=== PATIENT | female | born 1980 ===

== ENCOUNTER 2016-08-17 08:09 | Day surgery (SDC) | payer MEDICAID ==
[2016-02-29 17:03] VITALS: BMI 44.6
[2016-08-17] MEDS ORDERED: Lactated Ringer's 500 ML IV ONE (08:38)
[2016-08-17] MEDS ORDERED: Propofol 10 mg/ml Inj (20 ML) ONE (09:51)
[2016-08-17 10:56] VITALS: BP 127/93; PULSE 80; RESP 16; TEMP 98.7; O2SAT 100
== END 2016-08-17 11:20 | disposition home or self-care (01) ==
LOC: H.ENDO 08:09
PROVIDERS: ATTEND Internal Medicine Gastroenterology
DX: K21.9 Gastro-esophageal reflux disease without esophagitis (principal); I10 Essential (primary) hypertension; D64.9 Anemia, unspecified; K44.9 Diaphragmatic hernia without obstruction or gangrene; K31.9 Disease of stomach and duodenum, unspecified; Z98.84 Bariatric surgery status; K20.9 Esophagitis, unspecified

== ENCOUNTER 2016-11-12 06:09 | Day surgery (SDC) | payer MEDICAID ==
[2016-11-12 07:03] VITALS: BMI 27.1
[2016-11-12 07:34] LABS: HEMATOCRIT 39.7 % (34.0-47.0); MEAN CELL VOLUME 85.4 fl (81.0-99.0); MEAN CORPUSCULAR HEMOGLOBIN 27.9 pg (27.0-31.0); MEAN CORPUSCULAR HGB CONC 32.7 g/dL (33.0-37.0); RED CELL DISTRIBUTION WIDTH 15.7 % (11.5-14.5); WHITE BLOOD COUNT 4.7 K/uL (4.8-10.8)
[2016-11-12 07:49] LABS: BLOOD UREA NITROGEN 24 mg/dl (7-17); CALCIUM 9.5 mg/dL (8.4-10.2); CARBON DIOXIDE 27 mmol/L (22-30); CHLORIDE 104 mmol/L (98-107); GFR AFRICAN-AMERICAN > 60; GLUCOSE,RANDOM 78 mg/dL (65-105); POTASSIUM 4.2 MMOL/L (3.6-5.0); SODIUM 141 mmol/l (132-148)
[2016-11-12] MEDS ORDERED: Midazolam 2 MG/2 ML VIAL ONE (08:43)
[2016-11-12] MEDS ORDERED: Propofol 10 mg/ml Inj (20 ML) ONE (08:43)
[2016-11-12] MEDS ORDERED: Rocuronium 10 mg/ml (5 ml) ONE ×2 (08:44→10:55)
--- NOTE | 2016-11-12 08:49 | CP.SDSHP ---
Same Day Surgery H & P - History Proposed Procedure: laparoscopy ovarian cystectomy Pre-Op Diagnosis: pelvic pain; ovarian cyst - Previous Medical/Surgical History Misc: Other Comments: ovarian cyst by sono - Allergies Allergies: Allergies aspirin Allergy (Verified 12/27/15 23:25) RASH Penicillins Allergy (Verified 01/24/16 15:16) URTICARIA seasonal Allergy (Uncoded 11/12/16 07:18) SWELLING EYES TEARY - Physical Exam General Appearance: NAD, w/o x3 Vital Signs: Vital Signs 11/12/16 11/12/16 07:04 07:10 Temperature 98.2 F Pulse Rate 94 H 94 H Respiratory 18 Rate Blood Pressure 106/76 O2 Sat by Pulse 100 Oximetry Mental Status: Alert & Oriented x3 Neuro: WNL Heart: WNL Lungs: WNL GI: WNL - {Optional Preform as Required} Breast: WNL Abdomen: WNL Rectal: WNL SPRAY GUNNER: Other - Impression Impression: ovarian cyst - Date & Time Date: 11/12/16 Time: 08:55 Short Stay Discharge - Short Stay Discharge Admitting Diagnosis/Reason for Visit: N83.209 Disposition: HOME/ ROUTINE Referrals: Stephen Chambers MD [Primary Care Provider] -
[2016-11-12] MEDS ORDERED: Lidocaine 1% Inj (20ml) ONE (08:56)
[2016-11-12] MEDS ORDERED: Bupivacaine 0.5% Inj(30mL) ONE (08:56)
[2016-11-12] MEDS ORDERED: Lactated Ringer's 1,000 ML IV ONE (09:28)
[2016-11-12] MEDS ORDERED: Dexamethasone 4 mg/1 ml ONE (09:58)
[2016-11-12] MEDS ORDERED: Desflurane Inhalation Anesthetic Liq (240 ml) ONE (10:39)
[2016-11-12] MEDS ORDERED: Neostigmine Methylsulfate 2 MG/2 ML ML IV ONE (11:18)
[2016-11-12] MEDS ORDERED: Lactated Ringer's 1,000 ML IV SCH (11:47)
[2016-11-12] MEDS ORDERED: Oxycodone/Acetaminophen 5/325 mg Tab PO PRN (11:57)
[2016-11-12] MEDS: HYDROmorphone 0.5 mg/0.5 ml ISec IVP PRN ×3 (12:15→12:40)
[2016-11-12 13:26] VITALS: RESP 18
--- NOTE | 2016-11-12 15:35 | CP.SDSHP ---
Same Day Surgery H & P - Allergies Allergies: Allergies aspirin Allergy (Verified 12/27/15 23:25) RASH Penicillins Allergy (Verified 01/24/16 15:16) URTICARIA seasonal Allergy (Uncoded 11/12/16 07:18) SWELLING EYES TEARY - Physical Exam Vital Signs: Vital Signs 11/12/16 11/12/16 11/12/16 11:45 12:00 12:15 Temperature 98.0 F Pulse Rate 77 78 84 Respiratory 18 18 20 Rate Blood Pressure 127/84 131/89 126/85 O2 Sat by Pulse 100 100 99 Oximetry 11/12/16 11/12/16 11/12/16 12:30 12:45 13:00 Temperature 98.1 F 97.9 F Pulse Rate 84 82 83 Respiratory 18 20 20 Rate Blood Pressure 115/78 128/87 110/81 O2 Sat by Pulse 100 99 99 Oximetry 11/12/16 11/12/16 11/12/16 13:05 13:15 13:25 Temperature 98.1 F 97.8 F Pulse Rate 91 H 89 Respiratory 20 18 Rate Blood Pressure 117/73 120/85 O2 Sat by Pulse 99 99 96 Oximetry 11/12/16 14:10 Temperature 97.6 F Pulse Rate 82 Respiratory 18 Rate Blood Pressure 126/78 O2 Sat by Pulse 100 Oximetry Short Stay Discharge - Short Stay Discharge Admitting Diagnosis/Reason for Visit: N83.209 Referrals: Stephen Chambers MD [Primary Care Provider] - Follow-up: 2 wks in office Additional Instructions (Diet, Activity): pelvic and bed rest Rx for Percocet given (ipo q 4hrs prn for pain #30.) Progress Note/Discharge Note with Instructions: tolerated procedure well recovered well and procedure and findings explained to the pt Instructions given
[2016-11-12 16:30] VITALS: BP 109/61; PULSE 91; TEMP 97.6; O2SAT 99
--- NOTE | 2016-11-16 15:30 | OP ---
PROCEDURE DATE: 11/12/2016 PREOPERATIVE DIAGNOSES: 1. Pelvic pain. 2. Large left ovarian cyst. POSTOPERATIVE DIAGNOSES: 1. Pelvic pain. 2. Severe pelvic and abdominal adhesions. SURGEON: Dr. Hatch MANAGER SALT: Dr. Cantu, who was there for the entire duration of the case. Salesperson Corsets was needed i n positioning the patient and offering retraction and assisted in performing cystectomy and lysis of adhesions. ANESTHESIA USED: General per Dr. Ortiz. ESTIMATED BLOOD LOSS: 25 mL. DRAINS USED: None. REPLACEMENTS USED: None. FINDINGS: 1. Cervix appears long posterior, mobile, no gross lesion to visualization. 2. Laparoscopy showed severe adhesions of the omentum to the anterior abdominal wall and to the pelv ic wall. Adhesions were lysed using ligature procedure without any complication. 3. Left adnexal cyst about 10 cm, appears to be clear, aspirated over 165 mL of clear fluid and left ovarian cystectomy performed using ligature apparatus without any complications. PROCEDURE: The patient was taken to the operating room and placed on the operating table in a supine position. Following induction of general anesthesia, the patient was then replaced in a dorsal lith otomy position. Perineal and genital areas were draped and prepped in the usual sterile manner and s o was the abdomen. At this time, we then proceeded to place a Moreno catheter in the bladder. Clear fluid was then evacuated from the bladder. The patient was then examined under anesthesia with some of the above findings. Heavy weighted speculum was then placed in the posterior wall of vagina, expo sing the cervix. The anterior lip of the cervix was then grasped using a single-tooth tenaculum and retracted superiorly. At this time, the endocervical canal was then gently dilated using Hanks dilat ors in an increasing size manner in order to accommodate a HUMI cannula. A HUMI cannula was then ins erted into the endocervical canal and single-tooth tenaculum was then removed. No bleeding noted. A t this time, attention was then given to the abdomen. At the umbilicus, a Veress needle was then int roduced into the abdomen and about 5 liters of carbon dioxide were introduced into the abdomen, thus creating a pneumoperitoneum. Veress needle was then removed and a 1 cm incision was then made at the skin at the umbilicus. Through this, a 10 mm trocar was then introduced under direct visualization and upon entering the abdominal cavity, visualization of the area underneath the insertion showed no signs of trauma or bleeding. Laparoscope was then introduced through the trocar sheath and severe ad hesions of the omentum to the anterior abdominal wall and pelvic wall were noted to be present. Some of these adhesions were interfering with proposed procedure. At this time, we then proceeded to morris ce a 5 mm trocar on the left lower quadrant and a 11-12 mm trocar on the right lower quadrant. Both trocars were introduced under direct visualization without any complications. Using a ligature appar atus and a laparoscopic grasper, adhesions that were interfering with visualization of the pelvic org ans were then grasped and adhesions were lysed without any complications. No bleeding noted. At thi s time, a large ovarian cyst noted to be present on the left side, about 10 cm in size. The right ov lily appeared grossly within normal limits to inspection and the right tube also appeared grossly with in normal limits to inspection. At this time, we then proceeded using a laparoscopic needle to drain about 165 or more mL of clear fluid through the laparoscope. This fluid was sent to pathology for amelia bullard pathological evaluation. At this time, the collapsed cyst was then grasped using a grasping fo rceps and using ligature, cystectomy was then performed by electrocoagulating and cutting the cyst fr om the rest of the ovary. At this time, the cyst wall was then removed and the specimen was sent to pathology for proper pathological evaluation. Following this, we then proceeded to irrigate the pelv ic cavity using saline solution. No bleeding noted from the operative areas and all operative areas checked, hemostatically secure. Some more adhesions of the omentum to the anterior abdominal wall we re then lysed in order to prevent future entrapment of the bowel without any complications. Followin g this, we then proceeded to place an Interceed on the operative areas in order to prevent future adh esions. Pneumoperitoneum was then partially evacuated and the 5 mm trocar was then removed under dir ect visualization from the left lower quadrant. No bleeding noted. Also, the right lower quadrant t rocar was then also removed and no bleeding noted. At this time, the pneumoperitoneum was evacuated and the laparoscopic trocar was then removed under direct visualization. Fascia at the umbilicus was then grasped and approximated using 0 Vicryl suture in a simple manner. Same procedure was then per formed on the smaller right lower quadrant incision. At this time, the skin was then approximated us ing a Monocryl in a subcuticular fashion and Dermabond was then applied. Following this, we then pro ceeded to remove the HUMI cannula. No bleeding noted. The patient tolerated the procedure well. Th ere were no complications. Clear fluid noted to be present in the Moreno bag and the Moreno was then r emoved and the patient transferred to the recovery room in satisfactory condition. Ian Hatch MD cc: 71 TT: 11/16/2016 15:29:35 en
== END 2016-11-12 17:30 | disposition home or self-care (01) ==
LOC: H.OPSURG 06:09
PROVIDERS: ATTEND Specialist
DX: N83.292 Other ovarian cyst, left side (principal); K21.9 Gastro-esophageal reflux disease without esophagitis; F32.9 Major depressive disorder, single episode, unspecified; I10 Essential (primary) hypertension; F90.8 Attention-deficit hyperactivity disorder, other type; R10.2 Pelvic and perineal pain; K66.0 Peritoneal adhesions (postprocedural) (postinfection)

== ENCOUNTER 2016-11-27 01:27 | Emergency (ER) | payer MEDICAID ==
[2016-11-27 01:27] VITALS: BMI 27.1
[2016-11-27 01:53] VITALS: TEMP 98.6
--- NOTE | 2016-11-27 02:46 | ED PDOC ---
HPI: Abdomen Time Seen by Provider: 11/27/16 01:48 Chief Complaint (Nursing): Abdominal Pain Chief Complaint (Provider): Abdominal/Rectal Pain History Per: Patient Onset/Duration Of Symptoms: Days (x2 days) Current Symptoms Are (Timing): Still Present Additional Complaint(s): Lili Quinteros is a 36 year old female with previous medical history of ovarian cyst, who presents to the emergency department with a complaint of abdominal pain diffused to lower abdomen (comes and goes) associated with radiation to rectum internally and nausea ongoing for 2 days post having an ovarian cyst removed 2 weeks ago. Denies any vomiting, fever, abnormal bowel movement, or urinary symptoms. Stated that she took Percocet on 11/21/16 , which helped at the time but felt no relief when she took it again today. PMD: Ian Hatch MD Past Medical History Vital Signs: Last Vital Signs Temp 98.6 F 11/27/16 01:43 Pulse 102 H 11/27/16 01:43 Resp 18 11/27/16 01:43 BP 123/57 L 11/27/16 01:43 Pulse Ox 99 11/27/16 02:57 - Medical History PMH: Anemia, Depression, Diabetes (no meds since April 2015), HTN, Sleep Apnea (Prior to gastric sleeve) Denies: HIV, Chronic Kidney Disease - Surgical History Surgical History: Tonsillectomy, (x 3 '11,'05,'03) Denies: Pacemaker - Family History Family History: States: Unknown Family Hx - Social History Current smoker - smoking cessation education provided: No Alcohol: None Drugs: Denies - Immunization History Hx Tetanus Toxoid Vaccination: No Hx Influenza Vaccination: No Hx Pneumococcal Vaccination: No - Home Medications Home Medications: Ambulatory Orders Medication Instructions Recorded Bupropion HCl [Zyban] 300 mg PO DAILY 08/17/16 Dextroamphetamine/Amphetamine 20 mg PO TID 08/17/16 [Dextroamp-Amphetamin 20 mg Tab] Hydrochlorothiazide [Microzide] 12.5 mg PO BID 08/17/16 Medroxyprogesterone Acetate 150 mg IM Q3M 08/17/16 [Depo-Provera] Ascorbic Acid [Vitamin C] 1,000 mg PO DAILY 11/12/16 Biotin 500 mcg PO DAILY 11/12/16 Calcium Carb/Vitamin D3/Vit K1 1 each PO DAILY 11/12/16 [Calcium + D Soft Chewable Tab] Cholecalciferol (Vitamin D3) 50,000 unit PO QWK 11/12/16 [Vitamin D3] Ferrous Sulfate [Feosol] 325 mg PO BID 11/12/16 Folic Acid 1 mg PO DAILY 11/12/16 Levocetirizine Dihydrochloride 5 mg PO DAILY 11/12/16 [Xyzal] Losartan [Cozaar] 25 mg PO DAILY 11/12/16 Multivitamin with Iron [Children's 1 each PO DAILY 11/12/16 Multivitamin-Iron] Nitrofurantoin Macrocrystal 100 mg PO BID 11/12/16 [Nitrofurantoin Macrocrystals] Omeprazole 40 mg PO DAILY 11/12/16 Vitamin C/Biotin [Hair, Skin and 1 each PO DAILY 11/12/16 Nails Gummies] clonazePAM [clonAZEPAM] 0.5 mg PO BID 11/12/16 oxyCODONE/Acetaminophen [Percocet 1 tab PO Q4 PRN 11/12/16 5/325 mg Tab] Docusate Sodium [Dulcolax Stool 100 mg PO BID #20 capsule 11/27/16 Softener] Sod Phos,M-B/Na Phos,Di-Ba [Fleet 133 ml RC BID #6 enema 11/27/16 Enema] - Allergies Allergies/Adverse Reactions: Allergies Allergy/AdvReac Type Severity Reaction Status Date / Time aspirin Allergy RASH Verified 12/27/15 23:25 Penicillins Allergy URTICARIA Verified 01/24/16 15:16 seasonal Allergy SWELLING Uncoded 11/12/16 07:18 Review of Systems ROS Statement: Except As Marked, All Systems Reviewed And Found Negative Constitutional: Negative for: Fever Gastrointestinal: Positive for: Nausea, Abdominal Pain (diffuses to lower abdomen (comes and goes)), Rectal Pain (internal), Other (normal bowel movement) . Negative for: Vomiting, Diarrhea, Constipation Genitourinary Female: Negative for: Dysuria, Hematuria Physical Exam - Reviewed Nursing Documentation Reviewed: Yes Vital Signs Reviewed: Yes - Physical Exam Appears: Positive for: Well, Non-toxic, No Acute Distress Head Exam: Positive for: ATRAUMATIC, NORMAL INSPECTION, NORMOCEPHALIC Skin: Positive for: Normal Color, Warm, Dry Eye Exam: Positive for: EOMI, Normal appearance, PERRL ENT: Positive for: Normal ENT Inspection Neck: Positive for: Normal, Painless ROM, Supple Cardiovascular/Chest: Positive for: Regular Rate, Rhythm Respiratory: Positive for: Normal Breath Sounds. Negative for: Crackles, Rales , Rhonchi, Stridor Gastrointestinal/Abdominal: Positive for: Normal Exam, Bowel Sounds, Soft. Negative for: Tenderness, Mass, Guarding, Rebound Back: Positive for: Normal Inspection. Negative for: L CVA Tenderness, R CVA Tenderness Extremity: Positive for: Normal ROM. Negative for: Pedal Edema Neurologic/Psych: Positive for: Alert, Oriented - Laboratory Results Result Diagrams: 11/27/16 02:52 11/27/16 02:52 - ECG O2 Sat by Pulse Oximetry: 99 (RA) Pulse Ox Interpretation: Normal Medical Decision Making Medical Decision Making: Initial Impression: Post-operative pain Initial Plan: * Labs * Urine dipstick * Urine * Xray ABD with chest * Morphine 4mg IVP * Zofran Inj 4mg IVP * Urinalysis * Reevaluate 5AM: Pt. is feeling much better, no longer c/o of pain. Pt has normal bloodwork and mild-moderate constipatino on xray. Will d/c w/ stool softeners and warned of opiate induced constipation. Return precautions given. Scribe Attestation: Documented by Brenda Pisano, acting as a scribe for Nadir Gonzalez MD. Provider Scribe Attestation: All medical record entries made by the Scribe were at my direction and personally dictated by me. I have reviewed the chart and agree that the record accurately reflects my personal performance of the history, physical exam, medical decision making, and the department course for this patient. I have also personally directed, reviewed, and agree with the discharge instructions and disposition. Disposition - Clinical Impression Clinical Impression: Constipation - Disposition Referrals: Ian Hatch MD [Staff Provider] - Disposition: Routine/Home Disposition Time: 05:02 Condition: IMPROVED Prescriptions: Docusate Sodium [Dulcolax Stool Softener] 100 mg PO BID #20 capsule Sod Phos,M-B/Na Phos,Di-Ba [Fleet Enema] 133 ml RC BID #6 enema Instructions: Constipation (ED) Print Language: OCCITAN
[2016-11-27 02:57] LABS: BASO # 0.1 K/uL (0.0-0.2); BASO % 1.8 % (0.0-2.0); EOS # 0.3 K/uL (0.0-0.7); EOS % 5.8 % (0.0-4.0); HEMOGLOBIN 13.2 g/dL (12.0-16.0); LYMPH # 1.5 K/uL (1.0-4.3); LYMPH % 28.7 % (20.0-40.0); MEAN CELL VOLUME 84.6 fl (81.0-99.0); MEAN CORPUSCULAR HGB CONC 33.1 g/dL (33.0-37.0); MEAN PLATELET VOLUME 8.3 fl (7.2-11.7); MONO # 0.7 K/uL (0.0-0.8); NEUT # 2.6 K/uL (1.8-7.0); NEUT % 50.7 % (50.0-75.0); NRBC % 0.1 % (0.0-0.0); RBC 4.71 Mil/uL (3.80-5.20); RED CELL DISTRIBUTION WIDTH 14.7 % (11.5-14.5); WHITE BLOOD COUNT 5.1 K/uL (4.8-10.8)
[2016-11-27 03:08] LABS: SQUAMOUS EPITHIAL 5 /hpf (0-5); URINE BILIRUBIN NEGATIVE (NEGATIVE); URINE CLARITY SLIGHTY-CLOUDY (Clear); URINE COLOR YELLOW (YELLOW); URINE GLUCOSE (UA) >=500 mg/dL (Normal); URINE LEUKOCYTE ESTERASE NEG Leu/uL (Negative); URINE NITRATE NEGATIVE (NEGATIVE); URINE PROTEIN 30 mg/dL (NEGATIVE); URINE UROBILINOGEN 0.2-1.0 mg/dL (0.2-1.0)
[2016-11-27 03:10] LABS: BLOOD UREA NITROGEN 16 mg/dl (7-17); CALCIUM 9.3 mg/dL (8.4-10.2); GFR AFRICAN-AMERICAN > 60; GFR NON-AFRICAN AMERICAN > 60
[2016-11-27 03:13] LABS: URINE BLOOD SMALL (NEGATIVE)
[2016-11-27 05:45] VITALS: BP 132/78; PULSE 84; RESP 16; O2SAT 98
--- NOTE | 2016-11-27 07:51 | RAD ---
HISTORY: s/p procedure 2 weeks ago, abd pain COMPARISON: No prior. FINDINGS: BOWEL: Normal. No obstruction. No free air. BONES: Normal. OTHER FINDINGS: None. IMPRESSION: No active disease.
== END 2016-11-27 05:45 | disposition home or self-care (01) ==
LOC: H.ER 01:27
DX: K59.00 Constipation, unspecified (principal); E11.9 Type 2 diabetes mellitus without complications; Z88.0 Allergy status to penicillin

== ENCOUNTER 2016-12-31 16:45 | Emergency (ER) | payer MEDICAID ==
[2016-12-31 16:46] VITALS: BMI 27.1
[2016-12-31 16:58] VITALS: BP 145/89; RESP 18; TEMP 99.4; O2SAT 99
--- NOTE | 2016-12-31 17:21 | ED PDOC ---
HPI: General Adult Time Seen by Provider: 12/31/16 16:58 Chief Complaint (Nursing): Flu-like Symptoms Chief Complaint (Provider): Fever, cough History Per: Patient History/Exam Limitations: no limitations Onset/Duration Of Symptoms: Days Have you had recent travel within the past 21 days to any of the following countries: [place], [place], [place] or [place]?: No Current Symptoms Are (Timing): Still Present Recently: Treated By A Physician Additional History Per: Patient Additional Complaint(s): The patient is a 36yo female, no past medical history, presents to the ED for evaluation of persistent cough, congestion and fever present for the past 6 days. Patient reports she visited her PCP 3 days ago and was diagnosed with bronchitis. Patient states she was given rx azitrhomycin, benzonatate, promethazine, symbicort, ventolin and has taken them as prescribed with no relief. Patient reports persistent cough, chest pain with cough, congestion. She currently offers no additional medical complaints. Past Medical History Reviewed: Historical Data, Nursing Documentation, Vital Signs Vital Signs: Last Vital Signs Temp 99.4 F 12/31/16 16:53 Pulse 109 H 12/31/16 16:53 Resp 18 12/31/16 16:53 BP 145/89 12/31/16 16:53 Pulse Ox 99 12/31/16 17:30 - Medical History PMH: Anemia, Depression, Diabetes (no meds since April 2015), HTN, Sleep Apnea (Prior to gastric sleeve) Denies: HIV, Chronic Kidney Disease - Surgical History Surgical History: Tonsillectomy, (x 3 '11,'05,'03) Denies: Pacemaker - Family History Family History: States: Unknown Family Hx - Immunization History Hx Tetanus Toxoid Vaccination: No Hx Influenza Vaccination: No Hx Pneumococcal Vaccination: No - Home Medications Home Medications: Ambulatory Orders Medication Instructions Recorded Bupropion HCl [Zyban] 300 mg PO DAILY 08/17/16 Dextroamphetamine/Amphetamine 20 mg PO TID 08/17/16 [Dextroamp-Amphetamin 20 mg Tab] Hydrochlorothiazide [Microzide] 12.5 mg PO BID 08/17/16 Medroxyprogesterone Acetate 150 mg IM Q3M 08/17/16 [Depo-Provera] Ascorbic Acid [Vitamin C] 1,000 mg PO DAILY 11/12/16 Biotin 500 mcg PO DAILY 11/12/16 Calcium Carb/Vitamin D3/Vit K1 1 each PO DAILY 11/12/16 [Calcium + D Soft Chewable Tab] Cholecalciferol (Vitamin D3) 50,000 unit PO QWK 11/12/16 [Vitamin D3] Ferrous Sulfate [Feosol] 325 mg PO BID 11/12/16 Folic Acid 1 mg PO DAILY 11/12/16 Levocetirizine Dihydrochloride 5 mg PO DAILY 11/12/16 [Xyzal] Losartan [Cozaar] 25 mg PO DAILY 11/12/16 Multivitamin with Iron [Children's 1 each PO DAILY 11/12/16 Multivitamin-Iron] Nitrofurantoin Macrocrystal 100 mg PO BID 11/12/16 [Nitrofurantoin Macrocrystals] Omeprazole 40 mg PO DAILY 11/12/16 Vitamin C/Biotin [Hair, Skin and 1 each PO DAILY 11/12/16 Nails Gummies] clonazePAM [clonAZEPAM] 0.5 mg PO BID 11/12/16 oxyCODONE/Acetaminophen [Percocet 1 tab PO Q4 PRN 11/12/16 5/325 mg Tab] Docusate Sodium [Dulcolax Stool 100 mg PO BID #20 capsule 11/27/16 Softener] Sod Phos,M-B/Na Phos,Di-Ba [Fleet 133 ml RC BID #6 enema 11/27/16 Enema] Ibuprofen [Motrin] 600 mg PO Q6 #20 tab 12/31/16 Methylprednisolone [Medrol Dose 4 mg PO DAILY #21 mg 12/31/16 Pack (21 tabs)] - Allergies Allergies/Adverse Reactions: Allergies Allergy/AdvReac Type Severity Reaction Status Date / Time aspirin Allergy RASH Verified 12/31/16 16:53 Penicillins Allergy URTICARIA Verified 12/31/16 16:53 seasonal Allergy SWELLING Uncoded 12/31/16 16:53 Review of Systems ROS Statement: Except As Marked, All Systems Reviewed And Found Negative Constitutional: Positive for: Fever, Chills ENT: Positive for: Nose Congestion, Throat Pain Cardiovascular: Positive for: Chest Pain (w/ cough) Physical Exam - Reviewed Nursing Documentation Reviewed: Yes Vital Signs Reviewed: Yes - Physical Exam Appears: Positive for: Well, Non-toxic, No Acute Distress Head Exam: Positive for: ATRAUMATIC, NORMAL INSPECTION, NORMOCEPHALIC Skin: Positive for: Normal Color, Warm, DRY Eye Exam: Positive for: EOMI, Normal appearance, PERRL ENT: Positive for: TM Is/Are (normal b/l), Pharyngeal Erythema (ulcers noted on soft palate), Other (crusted ulcers noted on lip). Negative for: Tonsillar Exudate, Tonsillar Swelling Neck: Positive for: Normal, Supple Cardiovascular/Chest: Positive for: Regular Rate, Rhythm Respiratory: Positive for: Normal Breath Sounds. Negative for: Respiratory Distress Neurologic/Psych: Positive for: Alert, Oriented - ECG O2 Sat by Pulse Oximetry: 99 Medical Decision Making Medical Decision Making: Time: 1700 Impression: Bronchitis Plan: -- CXR Reassess CXR: NAD, as read by YADIRA Supportive care discussed Scribe Attestation: Documented by Dorcas Villalobos acting as a scribe for JC Ludwig Provider Attestation: All medical record entries made by the Scribe were at my direction and personally dictated by me. I have reviewed the chart and agree that the record accurately reflects my personal performance of the history, physical exam, medical decision making, and the department course for this patient. I have also personally directed, reviewed, and agree with the discharge instructions and disposition. Disposition - Clinical Impression Clinical Impression: Upper respiratory infection, Viral syndrome - Patient ED Disposition Is Patient to be Admitted: No - Disposition Disposition: Routine/Home Disposition Time: 18:00 Condition: STABLE Prescriptions: Ibuprofen [Motrin] 600 mg PO Q6 #20 tab Methylprednisolone [Medrol Dose Pack (21 tabs)] 4 mg PO DAILY #21 mg Instructions: Upper Respiratory Infection (ED) Forms: [employer] (Spanish)
[2016-12-31 18:07] VITALS: PULSE 92
--- NOTE | 2016-12-31 18:21 | RAD ---
HISTORY: Cough and fever. COMPARISON: 12/06/2016. TECHNIQUE: Chest PA and lateral FINDINGS: LUNGS: No active pulmonary disease. PLEURA: No significant pleural effusion identified. No pneumothorax apparent. CARDIOVASCULAR: Normal. OSSEOUS STRUCTURES: No significant abnormalities. VISUALIZED UPPER ABDOMEN: Normal. OTHER FINDINGS: None. IMPRESSION: No active disease. No significant interval change compared to the prior examination(s). No preliminary report provided by emergency department personnel.
== END 2016-12-31 18:06 | disposition home or self-care (01) ==
LOC: H.ER 16:45
DX: J06.9 Acute upper respiratory infection, unspecified (principal); B34.9 Viral infection, unspecified; E11.9 Type 2 diabetes mellitus without complications; F32.9 Major depressive disorder, single episode, unspecified; Z88.0 Allergy status to penicillin

== ENCOUNTER 2017-07-28 20:33 | Emergency (ER) | payer MEDICAID ==
[2017-07-28 20:33] VITALS: BMI 27.1
[2017-07-28 22:04] VITALS: BP 129/83; PULSE 59; RESP 16; TEMP 98.1; O2SAT 99
[2017-07-28] MEDS ORDERED: Sodium Chloride 0.9% 1,000 ML IV STA (22:32)
--- NOTE | 2017-07-28 22:33 | ED PDOC ---
HPI: General Adult Time Seen by Provider: 07/28/17 22:25 Chief Complaint (Nursing): GI Problem Chief Complaint (Provider): GI Problem History Per: Patient History/Exam Limitations: no limitations Current Symptoms Are (Timing): Still Present Additional Complaint(s): 37 year old female presents to the emergency department with a complaint of diarrhea since 07/25/2017. Associated with generalized weakness. Denies eating anything new or any recent travel, nausea, vomiting, chest pain, shortness of breath, dizziness, or urinary symptoms. No abd pain. PMD: Dr. Danielle Hammonds MD Past Medical History Reviewed: Historical Data, Nursing Documentation, Vital Signs Vital Signs: Last Vital Signs Temp 98.1 F 07/28/17 22:01 Pulse 59 L 07/28/17 22:01 Resp 16 07/28/17 22:01 BP 129/83 07/28/17 22:01 Pulse Ox 99 07/28/17 22:35 - Medical History PMH: Anemia, Depression, Diabetes (no meds since April 2015), HTN, Sleep Apnea (Prior to gastric sleeve) Denies: HIV, Chronic Kidney Disease - Surgical History Surgical History: Tonsillectomy, (x 3 '11,'05,'03) Denies: Pacemaker - Family History Family History: States: Unknown Family Hx - Immunization History Hx Tetanus Toxoid Vaccination: No Hx Influenza Vaccination: No Hx Pneumococcal Vaccination: No - Home Medications Home Medications: Ambulatory Orders Medication Instructions Recorded Bupropion HCl [Zyban] 300 mg PO DAILY 08/17/16 Dextroamphetamine/Amphetamine 20 mg PO TID 08/17/16 [Dextroamp-Amphetamin 20 mg Tab] Hydrochlorothiazide [Microzide] 12.5 mg PO BID 08/17/16 Medroxyprogesterone Acetate 150 mg IM Q3M 08/17/16 [Depo-Provera] Ascorbic Acid [Vitamin C] 1,000 mg PO DAILY 11/12/16 Biotin 500 mcg PO DAILY 11/12/16 Calcium Carb/Vitamin D3/Vit K1 1 each PO DAILY 11/12/16 [Calcium + D Soft Chewable Tab] Cholecalciferol (Vitamin D3) 50,000 unit PO QWK 11/12/16 [Vitamin D3] Ferrous Sulfate [Feosol] 325 mg PO BID 11/12/16 Folic Acid 1 mg PO DAILY 11/12/16 Levocetirizine Dihydrochloride 5 mg PO DAILY 11/12/16 [Xyzal] Losartan [Cozaar] 25 mg PO DAILY 11/12/16 Multivitamin with Iron [Children's 1 each PO DAILY 11/12/16 Multivitamin-Iron] Nitrofurantoin Macrocrystal 100 mg PO BID 11/12/16 [Nitrofurantoin Macrocrystals] Omeprazole 40 mg PO DAILY 11/12/16 Vitamin C/Biotin [Hair, Skin and 1 each PO DAILY 11/12/16 Nails Gummies] clonazePAM [clonAZEPAM] 0.5 mg PO BID 11/12/16 oxyCODONE/Acetaminophen [Percocet 1 tab PO Q4 PRN 11/12/16 5/325 mg Tab] Docusate Sodium [Dulcolax Stool 100 mg PO BID #20 capsule 11/27/16 Softener] Sod Phos,M-B/Na Phos,Di-Ba [Fleet 133 ml RC BID #6 enema 11/27/16 Enema] Ibuprofen [Motrin] 600 mg PO Q6 #20 tab 12/31/16 Methylprednisolone [Medrol Dose 4 mg PO DAILY #21 mg 12/31/16 Pack (21 tabs)] - Allergies Allergies/Adverse Reactions: Allergies Allergy/AdvReac Type Severity Reaction Status Date / Time aspirin Allergy RASH Verified 07/28/17 22:01 Penicillins Allergy URTICARIA Verified 07/28/17 22:01 seasonal Allergy SWELLING Uncoded 07/28/17 22:01 Review of Systems ROS Statement: Except As Marked, All Systems Reviewed And Found Negative (As per HPI, otherwise negative) Constitutional: Positive for: Weakness (generalized). Negative for: Other ( eating new foods or traveling) Cardiovascular: Negative for: Chest Pain Respiratory: Negative for: Shortness of Breath Gastrointestinal: Positive for: Diarrhea. Negative for: Nausea, Vomiting, Abdominal Pain Genitourinary Female: Negative for: Dysuria, Frequency, Incontinence, Hematuria Neurological: Negative for: Dizziness Physical Exam - Reviewed Nursing Documentation Reviewed: Yes Vital Signs Reviewed: Yes - Physical Exam Appears: Positive for: No Acute Distress Head Exam: Positive for: NORMAL INSPECTION Skin: Positive for: Normal Color, Warm, Dry ENT: Positive for: Normal ENT Inspection Neck: Positive for: Normal, Painless ROM Cardiovascular/Chest: Positive for: Regular Rate, Rhythm. Negative for: Murmur Respiratory: Positive for: Normal Breath Sounds. Negative for: Accessory Muscle Use, Respiratory Distress Gastrointestinal/Abdominal: Positive for: Normal Exam, Soft. Negative for: Tenderness Back: Positive for: Normal Inspection Extremity: Positive for: Normal ROM. Negative for: Tenderness Neurologic/Psych: Positive for: Alert, Oriented (x3) - ECG O2 Sat by Pulse Oximetry: 99 (RA) Pulse Ox Interpretation: Normal - Progress ED Course And Treament: 2356: Dr. Araiza to fu on labs and dispo. Medical Decision Making Medical Decision Making: Time: 2230 Initial impression: Diarrhea and nausea Initial plan: Scribe Attestation: Documented by Lora Pratt, acting as a scribe for Daniel Santiago MD. Provider Scribe Attestation: All medical record entries made by the Scribe were at my direction and personally dictated by me. I have reviewed the chart and agree that the record accurately reflects my personal performance of the history, physical exam, medical decision making, and the department course for this patient. I have also personally directed, reviewed, and agree with the discharge instructions and disposition. Disposition - Clinical Impression Clinical Impression: Diarrhea - Patient ED Disposition Is Patient to be Admitted: Transfer of Care - Disposition Disposition: Transfer of Care Disposition Time: 23:56 Condition: STABLE Patient Signed Over To: Martin Araiza
--- NOTE | 2017-07-29 00:20 | ED PDOC ---
- Laboratory Results Result Diagrams: 07/29/17 00:30 07/29/17 00:30 - ECG O2 Sat by Pulse Oximetry: 99 (RA) Medical Decision Making Medical Decision Makin Patient signed out from Dr. Santiago to me pending blood work and final disposition. 0056 Labs reviewed: no clinically significant abnormalities. Patient reports improvement in symptoms. Patient is stable for discharge home with prescriptions for Zofran and Pepcid. Patient will follow up with clinic in 1-2 days or as needed. Return precautions given, such as worsening symptoms. Dx: gastroenteritis Condition: improved Scribe Attestation: Documented by Elena Ramirez acting as a scribe for Martin Araiza MD. MD Scribe Attestation: All medical record entries made by the Scribe were at my direction and personally dictated by me. I have reviewed the chart and agree that the record accurately reflects my personal performance of the history, physical exam, medical decision making, and the department course for this patient. I have also personally directed, reviewed, and agree with the discharge instructions and disposition. Disposition - Clinical Impression Clinical Impression: Gastroenteritis - Disposition Disposition: Routine/Home Disposition Time: 00:56 Condition: IMPROVED Prescriptions: Dicyclomine [Bentyl] 20 mg PO Q12 PRN #20 tab PRN Reason: abdominal pain/diarrhea Ondansetron ODT [Zofran ODT] 4 mg PO Q6H PRN #8 odt PRN Reason: Nausea/Vomiting Instructions: Viral Gastroenteritis Forms: [employer] (Thai)
[2017-07-29 00:34] LABS: BASO % 0.4 % (0.0-2.0); EOS # 0.2 K/uL (0.0-0.7); EOS % 3.4 % (0.0-4.0); LYMPH # 1.6 K/uL (1.0-4.3); LYMPH % 31.5 % (20.0-40.0); MEAN CORPUSCULAR HEMOGLOBIN 28.4 pg (27.0-31.0); MEAN CORPUSCULAR HGB CONC 33.8 g/dL (33.0-37.0); MEAN PLATELET VOLUME 8.7 fl (7.2-11.7); MONO # 0.7 K/uL (0.0-0.8); MONO % 14.5 % (0.0-10.0); NEUT # 2.5 K/uL (1.8-7.0); NEUT % 50.2 % (50.0-75.0); NRBC % 0.3 % (0.0-0.0); RBC 4.93 Mil/uL (3.80-5.20); RED CELL DISTRIBUTION WIDTH 14.3 % (11.5-14.5)
[2017-07-29 00:41] LABS: BLOOD UREA NITROGEN 14 mg/dl (7-17); CALCIUM 9.5 mg/dL (8.4-10.2); GFR AFRICAN-AMERICAN > 60; GFR NON-AFRICAN AMERICAN > 60
[2017-07-29 00:42] LABS: ALB/GLOB RATIO 1.1 (1.0-2.1); ALBUMIN 4.2 g/dL (3.5-5.0); ALT/SGPT 29 U/L (9-52); AST/SGOT 21 U/L (14-36)
== END 2017-07-29 01:37 | disposition home or self-care (01) ==
LOC: H.ER 20:33
DX: K52.9 Noninfective gastroenteritis and colitis, unspecified (principal); E11.9 Type 2 diabetes mellitus without complications; F32.9 Major depressive disorder, single episode, unspecified; Z88.0 Allergy status to penicillin
CPT/HCPCS: 80053; 85025; 96374; 99283; J2060; J7040

== ENCOUNTER 2017-09-16 15:47 | Emergency (ER) | payer MEDICAID ==
[2017-09-16 15:47] VITALS: BMI 27.1
[2017-09-16 15:55] VITALS: TEMP 98.2; O2SAT 100
[2017-09-16] MEDS ORDERED: DiphenhydrAMINE 50 mg/ml Inj IVP STA (16:27)
[2017-09-16] MEDS ORDERED: Promethazine 25MG/50ML NS IVPB ONE (16:30)
--- NOTE | 2017-09-16 16:46 | ED PDOC ---
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 She has nausea, feels like room is spinning, but denies any trauma, no LOC, no changes in vision, no vomiting. No history of headaches like this in the past. She was at PMDs office prior to arriving here and was given some medication, unsure what. States she was sick last week. She is anxious, and crying at time of interview, unable to answer what she was doing at time of onset, unable to tell the chief writer her medical history. Allergies were reviewed. She denies any drug use. <Mindy Cortes - Last Filed: 09/16/17 20:04> <Gia Price - Last Filed: 09/16/17 22:59> Time Seen by Provider: 09/16/17 17:00 Chief Complaint (Nursing): Headache Supervising Attending Note - Supervising Attending Note The Documented history was done by the: Physician Tapper Bit, Attending Physician The documented physical exam was done by the: Physician Tapper Bit, Attending Physician - Attestation: I have personally seen and examined this patient.: Yes I have fully participated in the care of the patient.: Yes I have reviewed all pertinent clinical information: Yes - Notes: Notes:: Headache and vertiginous dizziness. Workup unremarkable and pt improved with ER treatment. Stable for DC. <Gia Price - Last Filed: 09/16/17 22:59> Past Medical History Vital Signs: Last Vital Signs Temp 98.2 F 09/16/17 15:52 Pulse 94 H 09/16/17 15:52 Resp 26 H 09/16/17 15:52 BP 144/98 H 09/16/17 15:52 Pulse Ox 100 09/16/17 15:52 - Medical History PMH: Anemia, Depression, Diabetes (no meds since April 2015), HTN, Sleep Apnea (Prior to gastric sleeve) Denies: HIV, Chronic Kidney Disease - Surgical History Surgical History: Tonsillectomy, (x 3 '11,'05,'03) Denies: Pacemaker - Family History Family History: States: Unknown Family Hx - Immunization History Hx Tetanus Toxoid Vaccination: No Hx Influenza Vaccination: No Hx Pneumococcal Vaccination: No <Mindy Cortes - Last Filed: 09/16/17 20:04> Vital Signs: Last Vital Signs Temp 98.2 F 09/16/17 15:52 Pulse 74 09/16/17 17:20 Resp 16 09/16/17 17:20 BP 148/96 H 09/16/17 17:20 Pulse Ox 100 09/16/17 20:14 <Gia Price - Last Filed: 09/16/17 22:59> - Home Medications Home Medications: Ambulatory Orders Medication Instructions Recorded Bupropion HCl [Zyban] 300 mg PO DAILY 08/17/16 Dextroamphetamine/Amphetamine 20 mg PO TID 08/17/16 [Dextroamp-Amphetamin 20 mg Tab] Hydrochlorothiazide [Microzide] 12.5 mg PO BID 08/17/16 Medroxyprogesterone Acetate 150 mg IM Q3M 08/17/16 [Depo-Provera] Ascorbic Acid [Vitamin C] 1,000 mg PO DAILY 11/12/16 Biotin 500 mcg PO DAILY 11/12/16 Calcium Carb/Vitamin D3/Vit K1 1 each PO DAILY 11/12/16 [Calcium + D Soft Chewable Tab] Cholecalciferol (Vitamin D3) 50,000 unit PO QWK 11/12/16 [Vitamin D3] Ferrous Sulfate [Feosol] 325 mg PO BID 11/12/16 Folic Acid 1 mg PO DAILY 11/12/16 Levocetirizine Dihydrochloride 5 mg PO DAILY 11/12/16 [Xyzal] Losartan [Cozaar] 25 mg PO DAILY 11/12/16 Multivitamin with Iron [Children's 1 each PO DAILY 11/12/16 Multivitamin-Iron] Nitrofurantoin Macrocrystal 100 mg PO BID 11/12/16 [Nitrofurantoin Macrocrystals] Omeprazole 40 mg PO DAILY 11/12/16 Vitamin C/Biotin [Hair, Skin and 1 each PO DAILY 11/12/16 Nails Gummies] clonazePAM [clonAZEPAM] 0.5 mg PO BID 11/12/16 oxyCODONE/Acetaminophen [Percocet 1 tab PO Q4 PRN 11/12/16 5/325 mg Tab] Docusate Sodium [Dulcolax Stool 100 mg PO BID #20 capsule 11/27/16 Softener] Sod Phos,M-B/Na Phos,Di-Ba [Fleet 133 ml RC BID #6 enema 11/27/16 Enema] Ibuprofen [Motrin] 600 mg PO Q6 #20 tab 12/31/16 Methylprednisolone [Medrol Dose 4 mg PO DAILY #21 mg 12/31/16 Pack (21 tabs)] Dicyclomine [Bentyl] 20 mg PO Q12 PRN #20 tab 07/29/17 Ondansetron ODT [Zofran ODT] 4 mg PO Q6H PRN #8 odt 07/29/17 Meclizine HCl 50 mg PO BID PRN #30 tablet 09/16/17 Nitrofurantoin Macrocrystals 1 cap PO BID #14 cap 09/16/17 [Macrobid] Ondansetron ODT [Zofran ODT] 1 odt PO Q6 PRN #20 odt 09/16/17 - Allergies Allergies/Adverse Reactions: Allergies Allergy/AdvReac Type Severity Reaction Status Date / Time aspirin Allergy RASH Verified 09/16/17 15:52 Penicillins Allergy URTICARIA Verified 09/16/17 15:52 seasonal Allergy SWELLING Uncoded 07/28/17 22:01 Review of Systems Constitutional: Negative for: Fever, Chills, Sweats, Weakness Eyes: Negative for: Pain, Vision Change ENT: Negative for: Ear Pain, Nose Pain Cardiovascular: Negative for: Chest Pain, Palpitations, Orthopnea, Edema, Light Headedness Respiratory: Negative for: Cough, Shortness of Breath Gastrointestinal: Positive for: Nausea. Negative for: Vomiting, Abdominal Pain , Diarrhea, Constipation Genitourinary Female: Negative for: Dysuria, Frequency, Incontinence Skin: Negative for: Rash Neurological: Positive for: Weakness (legs), Headache (severe). Negative for: Numbness, Incoordination, Change in Speech, Confusion, Seizures, Altered Mental Status Psych: Positive for: Anxiety <Mindy Cortes - Last Filed: 09/16/17 20:04> Physical Exam - Reviewed Vital Signs Reviewed: Yes (tachycardic, hypertensive,tachypneic) - Physical Exam Appears: Positive for: In Acute Distress (secondary to pain) Head Exam: Positive for: ATRAUMATIC, NORMAL INSPECTION, NORMOCEPHALIC Skin: Positive for: Normal Color, Warm, Dry Eye Exam: Positive for: Other (unable to examine, states room is spinning) ENT: Negative for: Nasal Congestion, Pharyngeal Erythema, Tonsillar Exudate Neck: Positive for: Normal. Negative for: Pain On Movement Of Neck Cardiovascular/Chest: Positive for: Regular Rate, Rhythm, Chest Non Tender, Tachycardia. Negative for: JVD, Murmur Respiratory: Positive for: Normal Breath Sounds. Negative for: Rales, Rhonchi, Wheezing, Respiratory Distress Gastrointestinal/Abdominal: Positive for: Soft. Negative for: Tenderness, Distended Rectal: Positive for: Deferred Extremity: Negative for: Tenderness, Pedal Edema Neurologic/Psych: Positive for: Alert, terminal gauger supervisor II-XII (unable to examine), Mood/ Affect (anxious), Gait (unable to assess). Negative for: Aphasia, Facial Droop <Mindy Cortes - Last Filed: 09/16/17 20:04> - Laboratory Results Result Diagrams: 09/16/17 17:18 09/16/17 17:18 - ECG O2 Sat by Pulse Oximetry: 100 - Progress ED Course And Treament: 37 year old female with sudden onset of severe headache rule out SAH --CBC --CMP --Mag --Phos --UDS --CT Head w/o contrast --phenergan --benadryl --meclizine --xanax CAse d/w Dr. Price TIME 19:00 SAH ruled out. Patient reassessed, sleeping comfortably in stretcher. No longer having headache, nausea, vertigo. She is feeling better. Able to walk around unit without difficulty. Given dose of Macrobid for UTI. ED precautions reviewed with patient. She is to follow up with PMD within [address] Price. <Mindy Cortes - Last Filed: 09/16/17 20:04> - Laboratory Results Result Diagrams: 09/16/17 17:18 09/16/17 17:18 <Gia Price - Last Filed: 09/16/17 22:59> Disposition - Disposition Disposition: Routine/Home Disposition Time: 20:10 <Mindy Cortes - Last Filed: 09/16/17 20:04> <Gia Price - Last Filed: 09/16/17 22:59> - Clinical Impression Clinical Impression: Headache, Vertigo - Disposition Referrals: Danielle Hammonds MD [Medical Doctor] - 09/19/17 Condition: IMPROVED Prescriptions: Meclizine HCl 50 mg PO BID PRN #30 tablet PRN Reason: Dizziness Nitrofurantoin Macrocrystals [Macrobid] 1 cap PO BID #14 cap Ondansetron ODT [Zofran ODT] 1 odt PO Q6 PRN #20 odt PRN Reason: Nausea/Vomiting Instructions: Vertigo (a Type of Dizziness), Headache, Adult (DC) Forms: [facility] ED School/Work Excuse
[2017-09-16 17:23] LABS: BASO % 0.9 % (0.0-2.0); EOS # 0.1 K/uL (0.0-0.7); EOS % 1.5 % (0.0-4.0); HEMOGLOBIN 12.1 g/dL (12.0-16.0); LYMPH # 1.5 K/uL (1.0-4.3); LYMPH % 31.4 % (20.0-40.0); MEAN CELL VOLUME 83.6 fl (81.0-99.0); MEAN CORPUSCULAR HEMOGLOBIN 27.8 pg (27.0-31.0); MEAN CORPUSCULAR HGB CONC 33.3 g/dL (33.0-37.0); MEAN PLATELET VOLUME 8.5 fl (7.2-11.7); MONO # 0.5 K/uL (0.0-0.8); MONO % 11.6 % (0.0-10.0); NEUT # 2.5 K/uL (1.8-7.0); NEUT % 54.6 % (50.0-75.0); NRBC % 0.1 % (0.0-0.0); RBC 4.34 Mil/uL (3.80-5.20); RED CELL DISTRIBUTION WIDTH 13.5 % (11.5-14.5); WHITE BLOOD COUNT 4.6 K/uL (4.8-10.8)
[2017-09-16 17:33] LABS: INR 1.2 (0.9-1.2); PARTIAL THROMBOPLASTIN TIME 29.9 Seconds (25.6-37.1); PROTHROMBIN TIME 12.9 Seconds (9.8-13.1)
[2017-09-16 17:37] VITALS: BP 148/96; PULSE 74; RESP 16
[2017-09-16 17:37] LABS: ALB/GLOB RATIO 1.1 (1.0-2.1); ALBUMIN 4.1 g/dL (3.5-5.0); ALT/SGPT 32 U/L (9-52); AST/SGOT 24 U/L (14-36); BLOOD UREA NITROGEN 13 mg/dl (7-17); CALCIUM 9.4 mg/dL (8.4-10.2); GFR AFRICAN-AMERICAN > 60; GFR NON-AFRICAN AMERICAN > 60
[2017-09-16 17:43] LABS: BARBITURATES, UR NEGATIVE (NEGATIVE); BENZODIAZEPINES, UR NEGATIVE (NEGATIVE); OPIATES, UR NEGATIVE (NEGATIVE)
[2017-09-16] MEDS ORDERED: DiphenhydrAMINE 50 mg/ml Inj ONE (17:44)
[2017-09-16 17:49] LABS: PHENCYCLIDINE, UR NEGATIVE (NEGATIVE)
--- NOTE | 2017-09-16 17:56 | CT ---
PROCEDURE: CT HEAD WITHOUT CONTRAST. HISTORY: headache r/o SAH COMPARISON: None available. TECHNIQUE: Axial computed tomography images were obtained through the head/brain without intravenous contrast. Radiation dose: Total exam DLP = 853.79 mGy-cm. This CT exam was performed using one or more of the following dose reduction techniques: Automated exposure control, adjustment of the mA and/or kV according to patient size, and/or use of iterative reconstruction technique. FINDINGS: HEMORRHAGE: No intracranial hemorrhage, including subarachnoid type. BRAIN: Normal deluna-white matter differentiation and density are appreciated throughout the cerebrum and cerebellum with the brainstem appearing unremarkable as well. There is no mass effect. There is no suspicious extra-axial fluid collection and the midline brain anatomy appears diffusely unremarkable. VENTRICLES: Unremarkable. No hydrocephalus. CALVARIUM: Unremarkable. PARANASAL SINUSES: Unremarkable as visualized. No significant inflammatory changes. MASTOID AIR CELLS: Unremarkable as visualized. No inflammatory changes. OTHER FINDINGS: None. IMPRESSION: Unremarkable unenhanced CT of the Head.
[2017-09-16 18:02] LABS: SQUAMOUS EPITHIAL 3 /hpf (0-5); URINE BACTERIA MOD (<OCC); URINE BILIRUBIN NEGATIVE (NEGATIVE); URINE BLOOD LARGE (NEGATIVE); URINE CLARITY CLOUDY (Clear); URINE COLOR YELLOW (YELLOW); URINE GLUCOSE (UA) NEG (Normal); URINE HYALINE CAST 0-2 /hpf (0-2); URINE LEUKOCYTE ESTERASE LARGE Leu/uL (Negative); URINE PROTEIN 30 mg/dL (NEGATIVE); URINE UROBILINOGEN 0.2-1.0 mg/dL (0.2-1.0)
== END 2017-09-16 20:00 | disposition home or self-care (01) ==
LOC: H.ER 15:47
DX: R51 Headache (principal); R42 Dizziness and giddiness; E11.9 Type 2 diabetes mellitus without complications; F32.9 Major depressive disorder, single episode, unspecified; I10 Essential (primary) hypertension; Z88.0 Allergy status to penicillin
CPT/HCPCS: 70450; 80053; 80324; 80345; 80346; 80349; 80353; 80358; 80361; 81003; 81025; 83735; 83992; 84100; 85025; 85610; 85730; 87086; 87181; 96365; 96375; 99285; J1200; J2550

== ENCOUNTER 2017-09-21 01:11 | Emergency (ER) | payer MEDICAID ==
[2017-09-21 01:11] VITALS: BMI 27.1
[2017-09-21] MEDS ORDERED: Sodium Chloride 0.9% 1,000 ML IV STA (01:29)
--- NOTE | 2017-09-21 02:54 | ED PDOC ---
HPI: Headache Time Seen by Provider: 09/21/17 01:19 Chief Complaint (Nursing): Headache History Per: Patient History/Exam Limitations: no limitations Onset/Duration Of Symptoms: Days Current Symptoms Are (Timing): Still Present Quality: Tightness Associated Symptoms: Photophobia, Nausea, Vomiting Additional Complaint(s): Patient arrives to ER with complaints of headache, dizziness, nausea and vomiting, states she was in ER for similar on Tuesday, was prescribed macrobid for UTI, meclizine, and anti-nausea, states was improving till today when the symptoms acutely worsened, also with vomiting today with epigastric pain, no longer present currently. No neck stiffness, no fever, headache is nonthunderclap and non-maximal in onset. Past Medical History Reviewed: Historical Data, Nursing Documentation, Vital Signs Vital Signs: Last Vital Signs Temp 98.1 F 09/21/17 01:15 Pulse 92 H 09/21/17 01:15 Resp BP 144/87 09/21/17 01:15 Pulse Ox 100 09/21/17 01:15 - Medical History PMH: Anemia, Depression, Diabetes (no meds since April 2015), HTN, Sleep Apnea (Prior to gastric sleeve) Denies: HIV, Chronic Kidney Disease - Surgical History Surgical History: Tonsillectomy, (x 3 '11,'05,'03) Denies: Pacemaker - Family History Family History: States: Unknown Family Hx - Immunization History Hx Tetanus Toxoid Vaccination: No Hx Influenza Vaccination: No Hx Pneumococcal Vaccination: No - Home Medications Home Medications: Ambulatory Orders Medication Instructions Recorded Bupropion HCl [Zyban] 300 mg PO DAILY 08/17/16 Dextroamphetamine/Amphetamine 20 mg PO TID 08/17/16 [Dextroamp-Amphetamin 20 mg Tab] Hydrochlorothiazide [Microzide] 12.5 mg PO BID 08/17/16 Medroxyprogesterone Acetate 150 mg IM Q3M 08/17/16 [Depo-Provera] Ascorbic Acid [Vitamin C] 1,000 mg PO DAILY 11/12/16 Biotin 500 mcg PO DAILY 11/12/16 Calcium Carb/Vitamin D3/Vit K1 1 each PO DAILY 11/12/16 [Calcium + D Soft Chewable Tab] Cholecalciferol (Vitamin D3) 50,000 unit PO QWK 11/12/16 [Vitamin D3] Ferrous Sulfate [Feosol] 325 mg PO BID 11/12/16 Folic Acid 1 mg PO DAILY 11/12/16 Levocetirizine Dihydrochloride 5 mg PO DAILY 11/12/16 [Xyzal] Losartan [Cozaar] 25 mg PO DAILY 11/12/16 Multivitamin with Iron [Children's 1 each PO DAILY 11/12/16 Multivitamin-Iron] Nitrofurantoin Macrocrystal 100 mg PO BID 11/12/16 [Nitrofurantoin Macrocrystals] Omeprazole 40 mg PO DAILY 11/12/16 Vitamin C/Biotin [Hair, Skin and 1 each PO DAILY 11/12/16 Nails Gummies] clonazePAM [clonAZEPAM] 0.5 mg PO BID 11/12/16 oxyCODONE/Acetaminophen [Percocet 1 tab PO Q4 PRN 11/12/16 5/325 mg Tab] Docusate Sodium [Dulcolax Stool 100 mg PO BID #20 capsule 11/27/16 Softener] Sod Phos,M-B/Na Phos,Di-Ba [Fleet 133 ml RC BID #6 enema 11/27/16 Enema] Ibuprofen [Motrin] 600 mg PO Q6 #20 tab 12/31/16 Methylprednisolone [Medrol Dose 4 mg PO DAILY #21 mg 12/31/16 Pack (21 tabs)] Dicyclomine [Bentyl] 20 mg PO Q12 PRN #20 tab 07/29/17 Ondansetron ODT [Zofran ODT] 4 mg PO Q6H PRN #8 odt 07/29/17 Meclizine HCl 50 mg PO BID PRN #30 tablet 09/16/17 Nitrofurantoin Macrocrystals 1 cap PO BID #14 cap 09/16/17 [Macrobid] Ondansetron ODT [Zofran ODT] 1 odt PO Q6 PRN #20 odt 09/16/17 Ketorolac Tromethamine [Toradol] 10 mg PO Q12 #30 tab 09/21/17 - Allergies Allergies/Adverse Reactions: Allergies Allergy/AdvReac Type Severity Reaction Status Date / Time aspirin Allergy RASH Verified 09/16/17 15:52 Penicillins Allergy URTICARIA Verified 09/16/17 15:52 seasonal Allergy SWELLING Uncoded 07/28/17 22:01 Review of Systems ROS Statement: Except As Marked, All Systems Reviewed And Found Negative Neurological: Positive for: Headache, Dizziness Physical Exam - Reviewed Nursing Documentation Reviewed: Yes Vital Signs Reviewed: Yes - Physical Exam Appears: Positive for: Well, Non-toxic, Uncomfortable (crying) Head Exam: Positive for: ATRAUMATIC, NORMAL INSPECTION, NORMOCEPHALIC Skin: Positive for: Normal Color, Warm, DRY Eye Exam: Positive for: EOMI, Normal appearance, PERRL ENT: Positive for: Normal ENT Inspection Neck: Positive for: Normal, Painless ROM Cardiovascular/Chest: Positive for: Regular Rate, Rhythm Respiratory: Positive for: CNT, Normal Breath Sounds Gastrointestinal/Abdominal: Positive for: Normal Exam, Soft Back: Positive for: Normal Inspection Extremity: Positive for: Normal ROM Neurologic/Psych: Positive for: Alert, access consultant II-XII, Oriented. Negative for: Motor/Sensory Deficits, Mood/Affect (normal), Gait (normal), Aphasia, Facial Droop - ECG O2 Sat by Pulse Oximetry: 100 Pulse Ox Interpretation: Normal Medical Decision Making Medical Decision MakinAM A/P: Hx of DM p/w headache and dizziness -patient was seen on Tuesday for similar with negative workup including head CT and labs -likley non-pathological headache, likely tension/migraine, not concerned for SAH/meningitis at this time -will provide sympotmatic treatment and re-eval 3AM Sleeping comfortably 530AM Patient feeling mcuh better, states symptoms have resolved. Advised patient to call neurology office for sooner appointment Patient well appearing, normal vitals upon discharge. Return precautions given. Disposition - Clinical Impression Clinical Impression: Migraine - Patient ED Disposition Is Patient to be Admitted: No - Disposition Referrals: Stephen Chambers MD [Family Provider] - Celso Wong [Outside] Disposition: Routine/Home Disposition Time: 05:35 Condition: IMPROVED Prescriptions: Ketorolac Tromethamine [Toradol] 10 mg PO Q12 #30 tab Instructions: Migraine Headaches in Adults Forms: [employer] (Indonesian) Print Language: MALTESE
[2017-09-21 05:31] VITALS: BP 120/63; PULSE 81; RESP 16; TEMP 98.3
[2017-09-21 05:35] VITALS: O2SAT 100
== END 2017-09-21 05:47 | disposition home or self-care (01) ==
LOC: H.ER 01:11
DX: G43.909 Migraine, unspecified, not intractable, without status migrainosus (principal); E11.9 Type 2 diabetes mellitus without complications; F32.9 Major depressive disorder, single episode, unspecified; I10 Essential (primary) hypertension; Z88.0 Allergy status to penicillin
CPT/HCPCS: 96365; 96375; 99285; J1885; J2765; J7040

== ENCOUNTER 2017-12-02 22:39 | Observation (INO) | payer MEDICAID ==
[2017-12-02 22:40] VITALS: BMI 27.1
[2017-12-02 22:57] VITALS: O2SAT 100
[2017-12-03] MEDS ORDERED: Alum-Mag Hydrox-Simethicone Susp (30 mL) PO STA (00:23)
[2017-12-03] MEDS ORDERED: Alum-Mag Hydrox-Simethicone Susp (30 mL) ONE (00:36)
[2017-12-03 01:03] LABS: BASO % 0.2 % (0.0-2.0); EOS # 0.1 K/uL (0.0-0.7); EOS % 2.2 % (0.0-4.0); HEMOGLOBIN 10.4 g/dL (12.0-16.0); LYMPH # 1.7 K/uL (1.0-4.3); LYMPH % 34.5 % (20.0-40.0); MEAN CORPUSCULAR HEMOGLOBIN 25.8 pg (27.0-31.0); MEAN CORPUSCULAR HGB CONC 32.7 g/dL (33.0-37.0); MEAN PLATELET VOLUME 8.8 fl (7.2-11.7); MONO # 0.4 K/uL (0.0-0.8); MONO % 8.9 % (0.0-10.0); NEUT # 2.6 K/uL (1.8-7.0); NEUT % 54.2 % (50.0-75.0); RBC 4.02 Mil/uL (3.80-5.20); RED CELL DISTRIBUTION WIDTH 14.4 % (11.5-14.5); WHITE BLOOD COUNT 4.8 K/uL (4.8-10.8)
[2017-12-03 01:12] LABS: ALB/GLOB RATIO 1.2 (1.0-2.1); ALT/SGPT 23 U/L (9-52); AST/SGOT 21 U/L (14-36); BLOOD UREA NITROGEN 13 mg/dl (7-17); CALCIUM 9.1 mg/dL (8.4-10.2); GFR AFRICAN-AMERICAN > 60; GFR NON-AFRICAN AMERICAN > 60; LIPASE 152 U/L (23-300)
--- NOTE | 2017-12-03 01:28 | ED PDOC ---
HPI: Abdomen Time Seen by Provider: 12/02/17 23:42 Chief Complaint (Nursing): Abdominal Pain Chief Complaint (Provider): Abdominal Pain History Per: Patient History/Exam Limitations: no limitations Onset/Duration Of Symptoms: Days (x3) Outside of [place] travel?: No Current Symptoms Are (Timing): Still Present Location Of Pain/Discomfort: Epigastric Quality Of Discomfort: Burning Additional Complaint(s): 37 y/o female with a PMHx of gastritis and peptic ulcer disease presents to the ED complaining of epigastric pain and vomiting associated with burping, onset three days ago. Patient also reports of one episode of vomiting with a "sting" of blood. Patient reports epigastric pain radiates up to the mid sternum and throat, prompting a "burning" pain. Denies diarrhea and fevers PMD: Dr. Zion Brothers Past Medical History Reviewed: Historical Data, Nursing Documentation, Vital Signs Vital Signs: Last Vital Signs Temp 98 F 12/03/17 08:00 Pulse 67 12/03/17 20:24 Resp 18 12/03/17 08:00 BP 133/77 12/03/17 08:00 Pulse Ox 100 12/03/17 20:24 - Medical History PMH: Anemia, Depression, Diabetes (no meds since April 2015), HTN, Sleep Apnea (Prior to gastric sleeve) Denies: HIV, Chronic Kidney Disease - Surgical History Surgical History: Tonsillectomy, (x 3 '11,'05,'03) Denies: Pacemaker Other surgeries: gastric sleeve disease - Family History Family History: States: Unknown Family Hx - Immunization History Hx Tetanus Toxoid Vaccination: No Hx Influenza Vaccination: No Hx Pneumococcal Vaccination: No - Home Medications Home Medications: Ambulatory Orders Medication Instructions Recorded Dexlansoprazole [Dexilant] 60 mg PO DAILY 12/03/17 Enalapril Maleate [Vasotec] 2.5 mg PO BID 12/03/17 buPROPion [Bupropion HCl] 300 mg PO DAILY 12/03/17 - Allergies Allergies/Adverse Reactions: Allergies Allergy/AdvReac Type Severity Reaction Status Date / Time aspirin Allergy RASH Verified 12/02/17 22:53 Penicillins Allergy URTICARIA Verified 12/02/17 22:53 seasonal Allergy SWELLING Uncoded 12/02/17 22:53 Review of Systems ROS Statement: Except As Marked, All Systems Reviewed And Found Negative Constitutional: Negative for: Fever Gastrointestinal: Positive for: Vomiting, Abdominal Pain. Negative for: Diarrhea Physical Exam - Reviewed Nursing Documentation Reviewed: Yes - Physical Exam Appears: Positive for: No Acute Distress (comfortable) Head Exam: Positive for: ATRAUMATIC, NORMOCEPHALIC Skin: Positive for: Normal Color, Warm, Dry Eye Exam: Positive for: Normal appearance, EOMI, PERRL ENT: Positive for: Normal ENT Inspection Neck: Positive for: Normal, Painless ROM, Supple Cardiovascular/Chest: Positive for: Regular Rate, Rhythm. Negative for: Murmur Respiratory: Positive for: Normal Breath Sounds. Negative for: Respiratory Distress Gastrointestinal/Abdominal: Positive for: Normal Exam, Soft, Tenderness (mild epigastric tenderness) Back: Positive for: Normal Inspection. Negative for: L CVA Tenderness, R CVA Tenderness, Vertebral Tenderness Extremity: Positive for: Normal ROM. Negative for: Pedal Edema, Deformity Neurologic/Psych: Positive for: Alert, Oriented. Negative for: Motor/Sensory Deficits - Laboratory Results Result Diagrams: 12/03/17 00:52 12/03/17 00:52 - ECG ECG Rhythm: Positive for: Normal QRS, Normal ST Segment, Sinus Rhythm Rate: 67 O2 Sat by Pulse Oximetry: 100 (RA) Pulse Ox Interpretation: Normal - Progress Re-evaluation Time: 03:42 Condition: Re-examined, Unchanged Medical Decision Making Medical Decision Making: Time: 0032 Impression: Epigastric pain, vomiting Differentials include but not limited to gastritis, peptic ulcer disease, and esophagitis. Plan: -- EKG -- CMP -- Lipase -- ED Urine -- ED Urine Dipstick -- CBC with differentials -- Lidocaine 2% Viscous 15 ml PO -- Maalox Plus 30 ml PO -- Pepcid 20 mg IVP -- Protonix Inj 40 mg IVP -- Zofran Inj 4 mg IVP -- IV Insertion Time: 0056 Plan: -- CT Abd/Pelvis IV Contrast -- CMP -- Lipase Time: 0309 CT ABD/PELVIS FINDINGS: The liver is normal. The spleen is again seen to be enlarged. The pancreas is normal. No gallstones. No hydronephrosis or perinephric stranding. The patient is status post gastric bypass surgery. The bowel appears normal. A normal appendix is identified cor [id number]. The uterus and ovaries appear normal. The previously seen cystic structure upper pelvis is no longer present. IMPRESSION: No acute findings. Thank you for allowing us to participate in the care of your patient. Dictated and Authenticated by: Sonya Song MD 12/03/2017 3:09 AM Eastern Time ([place] & [place]) Scribe Attestation: Documented by Jeannie Apodaca acting as a scribe for Dr. Karlie Fairchild MD. Provider Scribe Attestation: All medical record entries made by the Scribe were at my direction and personally dictated by me. I have reviewed the chart and agree that the record accurately reflects my personal performance of the history, physical exam, medical decision making, and the department course for this patient. I have also personally directed, reviewed, and agree with the discharge instructions and disposition. Disposition - Clinical Impression Clinical Impression: Abdominal pain in female, Chest pain, Vomiting blood, Anemia - Patient ED Disposition Is Patient to be Admitted: Yes Discussed With : Boogie To Counseled Patient/Family Regarding: Studies Performed, Diagnosis - Disposition Disposition Time: 03:43 Condition: FAIR - Pt Status Changed To: Hospital Disposition Of: Observation - POA Present On Arrival: None
[2017-12-03] MEDS ORDERED: Sodium Chloride 0.9% 50 ML IV ONE (02:18)
[2017-12-03] MEDS ORDERED: Iohexol 300 100 ML IJ ONE (02:18)
[2017-12-03] MEDS ORDERED: Ciprofloxacin 400mg/200ml D5W 400 MG/200 ML BAG IVPB STA (04:12)
[2017-12-03] MEDS ORDERED: Alum-Mag Hydrox-Simethicone Susp (30 mL) PO ONE (04:55)
[2017-12-03] MEDS ORDERED: Ciprofloxacin 400mg/200ml D5W 400 MG/200 ML BAG IVPB ONE (04:58)
[2017-12-03 07:45] LABS: INR 1.1 (0.9-1.2); PARTIAL THROMBOPLASTIN TIME 23.2 Seconds (25.6-37.1); PROTHROMBIN TIME 12.4 Seconds (9.8-13.1)
--- NOTE | 2017-12-03 10:56 | CT ---
PROCEDURE: CT Abdomen and Pelvis with contrast HISTORY: epigastric pain COMPARISON: CT scan of the abdomen pelvis dated 02/29/2016. TECHNIQUE: Contrast dose: 95 mL Omnipaque 300 Radiation dose: Total exam DLP = 514.8 mGy-cm. This CT exam was performed using one or more of the following dose reduction techniques: Automated exposure control, adjustment of the mA and/or kV according to patient size, and/or use of iterative reconstruction technique. FINDINGS: LOWER THORAX: Unremarkable. LIVER: Hepatic steatosis. Nonspecific left hepatic lobe 0.7 cm and right hepatic lobe 1.1 cm hypodense lesions (series 3, images 21 and 50). No ductal dilatation. GALLBLADDER AND BILE DUCTS: Unremarkable. PANCREAS: Unremarkable. No gross lesion or ductal dilatation. SPLEEN: Mild splenomegaly. ADRENALS: Unremarkable. No mass. KIDNEYS AND URETERS: Unremarkable. No hydronephrosis. No solid mass. VASCULATURE: Unremarkable. No aortic aneurysm. BOWEL: Small hiatal hernia. Prior gastric sleeve surgery. No obstruction. No gross mural thickening. APPENDIX: Normal appendix. PERITONEUM: Midline abdominal wall protrusion. No free fluid. No free air. LYMPH NODES: Unremarkable. No enlarged lymph nodes. BLADDER: Unremarkable. REPRODUCTIVE: Unremarkable. BONES: No acute fracture. OTHER FINDINGS: None. IMPRESSION: No acute abdominal pelvic pathology. Previously seen large left adnexal cystic structure is no longer identified. Stable appearance of nonspecific hepatic hypodensities as above described. Contrast-enhanced MRI of the liver can be obtained for further characterization as clinically warranted. Additional stable findings as above.
[2017-12-03] MEDS ORDERED: HYDROmorphone 0.5 mg/0.5 ml ISec ONE (11:05)
[2017-12-03] MEDS ORDERED: HYDROmorphone 0.5 mg/0.5 ml ISec IVP PRN (11:14)
--- NOTE | 2017-12-03 13:38 | CP.PCM.CON ---
<Juan R Nguyen - Last Filed: 12/03/17 14:54> History of Present Illness - History of Present Illness History of Present Illness: Initial PGY5 GI Cx Lili Quinteros is a 37F w/ hx of gastric sleeve, chronic GERD who presented to the ER with complaints of epigastric discomfort and pain. Pt states that she has a hx of reflux for many years. She has seen Dr. Peoples as an oupt was has had a subsequent EGD on 07/2016. At that time, she was found to have LA Grade B esophagitis. She continued to have dyspepsia like symptoms despite trying omeprazole and nexium. she was finally started on dexilant, which seemed to control her symptoms. She states that since her insurance company denied covering her dexilant, her last dose was 6 days prior. Since her last dose, she started to experience sharp epigastric pain which has progressively worsened. Since her admission, her symptoms have slightly improved. She noted prior nausea and non-bloody emesis, which have now resolved. She also noted some blood in her emesis. Denies BRBPR or melena. Denies any NSAID or anticoag use PMHx: chronic GERD PSHx: gastric sleeve Social Hx: denies any smoking, alcohol ,or illicit drug use Family hx: Reviewed; denies any GI malignancy ROS: 12 point ROS conducted, neg other than above Past Patient History - Infectious Disease Hx of Infectious Diseases: None - Past Medical History & Family History Past Medical History?: Yes - Past Social History Smoking Status: Never Smoked - CARDIAC Hx Hypertension: Yes Hx Pacemaker: No - PULMONARY Hx Sleep Apnea: Yes (Prior to gastric sleeve) - NEUROLOGICAL Hx Neurological Disorder: No Hx Paralysis: No - HEENT Hx HEENT Problems: No - RENAL Hx Chronic Kidney Disease: No - ENDOCRINE/METABOLIC Hx Diabetes Mellitus Type 2: No - HEMATOLOGICAL/ONCOLOGICAL Hx Anemia: Yes Hx Human Immunodeficiency Virus (HIV): No - INTEGUMENTARY Hx Dermatological Problems: No Hx Basil Cell: No Hx Ng: No Hx Cellulitis: No Hx Eczema: No Hx Melanoma: No Hx Psoriasis: No Hx Squamous Cell: No - MUSCULOSKELETAL/RHEUMATOLOGICAL Hx Musculoskeletal Disorders: No Hx Falls: No - GASTROINTESTINAL Hx Ulcer: Yes Other/Comment: gastric sleeve. esophagitis - GENITOURINARY/GYNECOLOGICAL Hx Genitourinary Disorders: No - PSYCHIATRIC Hx Depression: Yes - SURGICAL HISTORY Hx Tonsillectomy: Yes - ANESTHESIA Hx Anesthesia: Yes Hx Anesthesia Reactions: No Hx Malignant Hyperthermia: No Meds Allergies/Adverse Reactions: Allergies Allergy/AdvReac Type Severity Reaction Status Date / Time aspirin Allergy RASH Verified 12/02/17 22:53 Penicillins Allergy URTICARIA Verified 12/02/17 22:53 seasonal Allergy SWELLING Uncoded 12/02/17 22:53 - Medications Medications: Current Medications Hydromorphone HCl (Dilaudid) 1 mg IVP Q6 PRN PRN Reason: Pain, severe (8-10) Last Admin: 12/03/17 11:15 Dose: 1 mg Pantoprazole Sodium (Protonix Inj) 40 mg IVP DAILY HENRY Physical Exam - Constitutional Appears: Well, No Acute Distress - Head Exam Head Exam: ATRAUMATIC, NORMOCEPHALIC - Eye Exam Eye Exam: Normal appearance - ENT Exam ENT Exam: Mucous Membranes Moist, Normal Exam - Neck Exam Neck exam: Positive for: Normal Inspection - Respiratory Exam Respiratory Exam: Clear to Auscultation Bilateral, NORMAL BREATHING PATTERN. absent: Rales, Rhonchi, Wheezes, Respiratory Distress - Cardiovascular Exam Cardiovascular Exam: REGULAR RHYTHM, +S1, +S2 - GI/Abdominal Exam GI & Abdominal Exam: Normal Bowel Sounds, Soft. absent: Distended, Firm, Guarding, Organomegaly, Rebound, Rigid - Rectal Exam Rectal Exam: absent: Black Stool, Bloody Stool, Hemorrhoids Additional comments: brown stool - Extremities Exam Extremities exam: Negative for: joint swelling, pedal edema - Back Exam Back exam: NORMAL INSPECTION - Neurological Exam Neurological exam: Alert, Oriented x3 - Psychiatric Exam Psychiatric exam: Normal Affect, Normal Mood - Skin Skin Exam: Dry, Intact, Normal Color, Warm Results - Vital Signs Recent Vital Signs: Last Vital Signs Temp 98.5 F 12/02/17 22:57 Pulse 67 12/03/17 03:44 Resp 16 12/02/17 22:57 BP 121/84 12/02/17 22:57 Pulse Ox 100 12/03/17 03:44 - Labs Result Diagrams: 12/03/17 00:52 12/03/17 00:52 Labs: Laboratory Results - last 24 hr 12/03/17 12/03/17 12/03/17 00:52 00:52 07:02 WBC 4.8 RBC 4.02 Hgb 10.4 L Hct 31.8 L MCV 79.0 L D MCH 25.8 L MCHC 32.7 L RDW 14.4 Plt Count 292 MPV 8.8 Neut % (Auto) 54.2 Lymph % (Auto) 34.5 [place] % (Auto) 8.9 Eos % (Auto) 2.2 Baso % (Auto) 0.2 Neut # (Auto) 2.6 Lymph # (Auto) 1.7 [place] # (Auto) 0.4 Eos # (Auto) 0.1 Baso # (Auto) 0.0 PT INR APTT Sodium 140 Potassium 3.9 Chloride 108 H Carbon Dioxide 21 L Anion Gap 15 BUN 13 Creatinine 0.6 L Est GFR ( Amer) > 60 Est GFR (Non-Af Amer) > 60 Random Glucose 83 Calcium 9.1 Total Bilirubin 0.3 AST 21 ALT 23 Alkaline Phosphatase 59 Total Protein 7.3 Albumin 4.0 Globulin 3.3 Albumin/Globulin Ratio 1.2 Lipase 152 Blood Type O POSITIVE Antibody Screen Negative BBK History Checked Patient has bt 12/03/17 07:02 WBC RBC Hgb Hct MCV MCH MCHC RDW Plt Count MPV Neut % (Auto) Lymph % (Auto) [place] % (Auto) Eos % (Auto) Baso % (Auto) Neut # (Auto) Lymph # (Auto) [place] # (Auto) Eos # (Auto) Baso # (Auto) PT 12.4 INR 1.1 APTT 23.2 L Sodium Potassium Chloride Carbon Dioxide Anion Gap BUN Creatinine Est GFR ( Amer) Est GFR (Non-Af Amer) Random Glucose Calcium Total Bilirubin AST ALT Alkaline Phosphatase Total Protein Albumin Globulin Albumin/Globulin Ratio Lipase Blood Type Antibody Screen BBK History Checked Assessment & Plan - Assessment and Plan (Free Text) Assessment: Lili Quinteros is a 37F w/ hx of chronic GERD, gastric sleeve who presents to the ED for epigastric pain and GERD Epigastric pain, likely 2/2 GERD Dyspepsia hx of gastric sleeve Plan: -start regular diet -continue protonix daily -recommend f/u with Dr. Peoples as an oupt for dexilant pre-auth -if no improvement, will recommend repeat EGD as an oupt -hgb stable -no signs of GI bleed -zofran PRN -will sign off D/W Dr. Peoples <Al Peoples - Last Filed: 12/03/17 15:28> Meds - Medications Medications: Current Medications Hydromorphone HCl (Dilaudid) 1 mg IVP Q6 PRN PRN Reason: Pain, severe (8-10) Last Admin: 12/03/17 11:15 Dose: 1 mg Pantoprazole Sodium (Protonix Inj) 40 mg IVP DAILY HENRY Results - Vital Signs Recent Vital Signs: Last Vital Signs Temp 98.5 F 12/02/17 22:57 Pulse 67 12/03/17 03:44 Resp 16 12/02/17 22:57 BP 121/84 12/02/17 22:57 Pulse Ox 100 12/03/17 03:44 - Labs Result Diagrams: 12/03/17 00:52 12/03/17 00:52 Labs: Laboratory Results - last 24 hr 12/03/17 12/03/17 12/03/17 00:52 00:52 07:02 WBC 4.8 RBC 4.02 Hgb 10.4 L Hct 31.8 L MCV 79.0 L D MCH 25.8 L MCHC 32.7 L RDW 14.4 Plt Count 292 MPV 8.8 Neut % (Auto) 54.2 Lymph % (Auto) 34.5 [place] % (Auto) 8.9 Eos % (Auto) 2.2 Baso % (Auto) 0.2 Neut # (Auto) 2.6 Lymph # (Auto) 1.7 [place] # (Auto) 0.4 Eos # (Auto) 0.1 Baso # (Auto) 0.0 PT INR APTT Sodium 140 Potassium 3.9 Chloride 108 H Carbon Dioxide 21 L Anion Gap 15 BUN 13 Creatinine 0.6 L Est GFR ( Amer) > 60 Est GFR (Non-Af Amer) > 60 Random Glucose 83 Calcium 9.1 Total Bilirubin 0.3 AST 21 ALT 23 Alkaline Phosphatase 59 Total Protein 7.3 Albumin 4.0 Globulin 3.3 Albumin/Globulin Ratio 1.2 Lipase 152 Blood Type O POSITIVE Antibody Screen Negative BBK History Checked Patient has bt 12/03/17 07:02 WBC RBC Hgb Hct MCV MCH MCHC RDW Plt Count MPV Neut % (Auto) Lymph % (Auto) [place] % (Auto) Eos % (Auto) Baso % (Auto) Neut # (Auto) Lymph # (Auto) [place] # (Auto) Eos # (Auto) Baso # (Auto) PT 12.4 INR 1.1 APTT 23.2 L Sodium Potassium Chloride Carbon Dioxide Anion Gap BUN Creatinine Est GFR ( Amer) Est GFR (Non-Af Amer) Random Glucose Calcium Total Bilirubin AST ALT Alkaline Phosphatase Total Protein Albumin Globulin Albumin/Globulin Ratio Lipase Blood Type Antibody Screen BBK History Checked Attending/Attestation - Attestation I have personally seen and examined this patient.: Yes I have fully participated in the care of the patient.: Yes I have reviewed all pertinent clinical information: Yes Notes (Text): 12/03/17 15:26 Patient seen in ER earlier today. This is a 37 yr old F with history of chronic GERD, gastric sleeve who presents to the ED for epigastric pain and GERD s/p EGD last year with Grade B esophagitis and hiatal hernia. She was on PPI dexilant that she ran out of two days ago. Will restart PPI and diet as tolerated. Small frequent meals. Will sign off now. No indication for endoscopy
[2017-12-03 15:53] VITALS: BP 133/77; RESP 18; TEMP 98
[2017-12-03] MEDS ORDERED: HYDROmorphone 0.5 mg/0.5 ml ISec IVP SCH (16:00)
[2017-12-03 20:25] VITALS: PULSE 67
--- NOTE | 2017-12-05 10:16 | CARD ---
APPROVED REPORT EKG Measurement Heart [id number] MD [id number] <Conclusion> Normal sinus rhythm Normal ECG
== END 2017-12-03 16:03 | disposition left against medical advice (07) ==
LOC: H.ER 22:39 → H.ERHOLD 12-03 04:16
PROVIDERS: ADMIT Family Medicine; ATTEND Family Medicine
DX: R10.13 Epigastric pain (principal); K21.0 Gastro-esophageal reflux disease with esophagitis; K29.70 Gastritis, unspecified, without bleeding; Z98.84 Bariatric surgery status; I10 Essential (primary) hypertension; E11.9 Type 2 diabetes mellitus without complications; D64.9 Anemia, unspecified; G47.30 Sleep apnea, unspecified; Z87.11 Personal history of peptic ulcer disease; Z88.6 Allergy status to analgesic agent; Z88.0 Allergy status to penicillin
CPT/HCPCS: 74177; 80053; 81025; 83690; 85025; 85610; 85730; 86850; 86900; 87086; 87181; 93005; 96374; 96375; 99284; C9113; G0378; J0744; J1170; J2405; Q9967

== ENCOUNTER 2017-12-14 00:36 | Emergency (ER) | payer MEDICAID ==
[2017-12-14 00:36] VITALS: BMI 27.1
[2017-12-14 01:01] VITALS: O2SAT 100
[2017-12-14] MEDS ORDERED: Sodium Chloride 0.9% 1,000 ML IV STA (01:28)
--- NOTE | 2017-12-14 02:03 | ED PDOC ---
HPI: Female Pain Time Seen by Provider: 12/14/17 01:13 Chief Complaint (Nursing): Female Genitourinary Chief Complaint (Provider): dysuria History Per: Patient History/Exam Limitations: no limitations Onset/Duration Of Symptoms: Days (4) Current Symptoms Are (Timing): Still Present Quality Of Discomfort: Burning, "Pain" Associated Symptoms: Fever Additional Complaint(s): 37 y/o female presents for evaluation of dysuria x 4 days. Patient states she finished course of Bactrim DS yesterday for UTI that was found on a culture after discharge from recent hospital admission for unrelated complaints on 12/05 ( was not having urinary symptoms then), but states urinary symptoms started Tuesday. Patient reports painful bumps to vaginal area and left-sided back pain x 2 days; was evaluated by her Kitchen Mechanic and vaginal cultures taken, awaiting results and was advised to continue antibiotics. Fever noted yesterday, tmax 102F, sore throat. Denies cough, congestion, chest pain, shortness of breath, vomiting, abdominal pain, changes in bowel movements, hematuria. Patient states she is sexually active with one partner and uses protection, no history of STDs. Ibuprofen taken 23:00 last night. Past Medical History Reviewed: Historical Data, Nursing Documentation, Vital Signs Vital Signs: Last Vital Signs Temp 99.6 F 12/14/17 00:53 Pulse 107 H 12/14/17 00:53 Resp 18 12/14/17 00:53 BP Pulse Ox 100 12/14/17 00:53 - Medical History PMH: Anemia, Depression, Diabetes (no meds since April 2015), HTN, Sleep Apnea (Prior to gastric sleeve) Denies: HIV, Chronic Kidney Disease - Surgical History Surgical History: Tonsillectomy, (x 3 '11,'05,'03) Denies: Pacemaker - Family History Family History: States: Unknown Family Hx - Immunization History Hx Tetanus Toxoid Vaccination: No Hx Influenza Vaccination: No Hx Pneumococcal Vaccination: No - Home Medications Home Medications: Ambulatory Orders Medication Instructions Recorded Dexlansoprazole [Dexilant] 60 mg PO DAILY 12/03/17 Enalapril Maleate [Vasotec] 2.5 mg PO BID 12/03/17 buPROPion [Bupropion HCl] 300 mg PO DAILY 12/03/17 Sulfamethoxazole/Trimethoprim 1 tab PO BID #14 tab 12/05/17 [Bactrim DS 800 mg-160 mg] Ciprofloxacin HCl [Cipro] 500 mg PO BID #20 tab 12/14/17 - Allergies Allergies/Adverse Reactions: Allergies Allergy/AdvReac Type Severity Reaction Status Date / Time aspirin Allergy RASH Verified 12/02/17 22:53 Penicillins Allergy URTICARIA Verified 12/02/17 22:53 seasonal Allergy SWELLING Uncoded 12/02/17 22:53 Review of Systems ROS Statement: Except As Marked, All Systems Reviewed And Found Negative Constitutional: Positive for: Fever Genitourinary Female: Positive for: Dysuria, Frequency, Rash Musculoskeletal: Positive for: Back Pain Physical Exam - Reviewed Nursing Documentation Reviewed: Yes Vital Signs Reviewed: Yes - Physical Exam Appears: Positive for: Well, Non-toxic, No Acute Distress Head Exam: Positive for: ATRAUMATIC, NORMAL INSPECTION, NORMOCEPHALIC Skin: Positive for: Normal Color Eye Exam: Positive for: Normal appearance ENT: Positive for: Normal ENT Inspection Cardiovascular/Chest: Positive for: Regular Rate, Rhythm Respiratory: Positive for: Normal Breath Sounds Gastrointestinal/Abdominal: Positive for: Normal Exam, Bowel Sounds, Soft, Tenderness Pelvic Exam: Positive for: No Cerv. Motion Tender, Lesions (yellow/white pustular lesions noted to labia minora extending in to vaginal canal; no vesicles, drainage, edema noted ), Other (exam director school of nursing Kayla Garcia RN). Negative for: Active Bleeding, Cervicitis Back: Positive for: L CVA Tenderness Extremity: Positive for: Normal ROM Lymphatic: Positive for: Inguinal Node Tenderness (b/l) Neurologic/Psych: Positive for: Alert, Oriented - Laboratory Results Result Diagrams: 12/14/17 02:00 12/14/17 02:00 - ECG O2 Sat by Pulse Oximetry: 100 - Progress ED Course And Treament: labs, urine, genital cultures, IV fluids, IV toradol On re-eval, patient resting comfortably; states pain improved. Case discussed with ED attending Dr. Araiza; will treat prophylactically with Rocephin/Zithromax for GC/Chlamydia and provide Cipro rx upon discharge. Patient educated on findings, advised follow up PMD 2-3 days. Continue ibuprofen PRN pain/fever. Increase fluid intake Follow up Kitchen Mechanic for results of office tests Return precautions given Disposition - Clinical Impression Clinical Impression: Pyelonephritis, Female genital lesion - Patient ED Disposition Is Patient to be Admitted: No Counseled Patient/Family Regarding: Studies Performed, Diagnosis, Need For Followup, Rx Given - Disposition Referrals: Danielle Hammonds MD [Primary Care Provider] - Disposition: Routine/Home Disposition Time: 04:39 Condition: IMPROVED Prescriptions: Ciprofloxacin HCl [Cipro] 500 mg PO BID #20 tab Instructions: Kidney Infection Forms: [facility] (Bulgarian)
[2017-12-14 02:16] LABS: VENOUS BLOOD GAS BASE EXCESS -1.3 mmol/L (0.0-2.0); VENOUS BLOOD GAS PCO2 43 mmHg (40-60); VENOUS BLOOD GAS PO2 28 mm/Hg (30-55); VENOUS BLOOD PH 7.36 (7.32-7.43)
[2017-12-14 02:21] LABS: SQUAMOUS EPITHIAL 6 /hpf (0-5); URINE BILIRUBIN NEGATIVE (NEGATIVE); URINE BLOOD NEGATIVE (NEGATIVE); URINE CLARITY CLOUDY (Clear); URINE COLOR YELLOW (YELLOW); URINE GLUCOSE (UA) 50 mg/dL (Normal); URINE LEUKOCYTE ESTERASE LARGE Leu/uL (Negative); URINE PROTEIN 30 mg/dL (NEGATIVE)
[2017-12-14 02:26] LABS: BASO % 0.3 % (0.0-2.0); EOS # 0.1 K/uL (0.0-0.7); HEMOGLOBIN 9.7 g/dL (12.0-16.0); LYMPH # 1.2 K/uL (1.0-4.3); LYMPH % 13.2 % (20.0-40.0); MEAN CELL VOLUME 78.2 fl (81.0-99.0); MEAN CORPUSCULAR HEMOGLOBIN 25.1 pg (27.0-31.0); MEAN CORPUSCULAR HGB CONC 32.1 g/dL (33.0-37.0); MEAN PLATELET VOLUME 8.8 fl (7.2-11.7); MONO # 0.8 K/uL (0.0-0.8); MONO % 8.6 % (0.0-10.0); NEUT # 6.8 K/uL (1.8-7.0); NEUT % 76.9 % (50.0-75.0); NRBC % 0.1 % (0.0-0.0); RBC 3.86 Mil/uL (3.80-5.20); RED CELL DISTRIBUTION WIDTH 14.8 % (11.5-14.5); WHITE BLOOD COUNT 8.8 K/uL (4.8-10.8)
[2017-12-14] MEDS ORDERED: Fluconazole 150 MG TAB PO ONE (02:58)
[2017-12-14 03:04] LABS: ALB/GLOB RATIO 1.1 (1.0-2.1); ALT/SGPT 12 U/L (9-52); AST/SGOT 16 U/L (14-36); BLOOD UREA NITROGEN 11 mg/dl (7-17); CALCIUM 8.8 mg/dL (8.4-10.2); GFR AFRICAN-AMERICAN > 60; GFR NON-AFRICAN AMERICAN > 60
[2017-12-14] MEDS ORDERED: cefTRIAXone (Rocephin) 1 gm Inj ONE (03:18)
[2017-12-14 04:11] VITALS: TEMP 98.5
[2017-12-14 04:25] VITALS: BP 120/68; PULSE 87; RESP 15
== END 2017-12-14 05:40 | disposition home or self-care (01) ==
LOC: H.ER 00:36
DX: N12 Tubulo-interstitial nephritis, not specified as acute or chronic (principal); N90.89 Other specified noninflammatory disorders of vulva and perineum; E11.9 Type 2 diabetes mellitus without complications; F32.9 Major depressive disorder, single episode, unspecified; Z88.0 Allergy status to penicillin
CPT/HCPCS: 80053; 81003; 81025; 82803; 85025; 87040; 87070; 87086; 87430; 87491; 87591; 96374; 96375; 99283; J0696; J1885; J7030

== ENCOUNTER 2017-12-24 02:19 | Emergency (ER) | payer MEDICAID ==
[2017-12-24 02:38] VITALS: BMI 30.9
[2017-12-24 02:41] VITALS: RESP 16; O2SAT 100
[2017-12-24] MEDS ORDERED: Alum-Mag Hydrox-Simethicone Susp (30 mL) PO STA (02:48)
[2017-12-24 03:12] LABS: BASO % 0.9 % (0.0-2.0); EOS # 0.1 K/uL (0.0-0.7); EOS % 2.5 % (0.0-4.0); HEMOGLOBIN 10.7 g/dL (12.0-16.0); LYMPH # 1.5 K/uL (1.0-4.3); LYMPH % 27.7 % (20.0-40.0); MEAN CELL VOLUME 76.9 fl (81.0-99.0); MEAN CORPUSCULAR HEMOGLOBIN 24.8 pg (27.0-31.0); MEAN CORPUSCULAR HGB CONC 32.2 g/dL (33.0-37.0); MEAN PLATELET VOLUME 8.5 fl (7.2-11.7); MONO # 0.5 K/uL (0.0-0.8); MONO % 10.1 % (0.0-10.0); NEUT # 3.1 K/uL (1.8-7.0); NEUT % 58.8 % (50.0-75.0); NRBC % 0.3 % (0.0-0.0); RBC 4.3 Mil/uL (3.80-5.20); RED CELL DISTRIBUTION WIDTH 14.7 % (11.5-14.5); WHITE BLOOD COUNT 5.3 K/uL (4.8-10.8)
[2017-12-24 03:22] LABS: ALBUMIN 4.1 g/dL (3.5-5.0); ALT/SGPT 8 U/L (9-52); AST/SGOT 18 U/L (14-36); BLOOD UREA NITROGEN 13 mg/dl (7-17); CALCIUM 9.2 mg/dL (8.4-10.2); GFR NON-AFRICAN AMERICAN > 60; LIPASE 126 U/L (23-300)
--- NOTE | 2017-12-24 03:22 | ED PDOC ---
HPI: Abdomen Time Seen by Provider: 12/24/17 02:26 Chief Complaint (Nursing): Abdominal Pain Chief Complaint (Provider): Abdominal Pain History Per: Patient History/Exam Limitations: no limitations Onset/Duration Of Symptoms: Persistent Current Symptoms Are (Timing): Still Present Additional Complaint(s): 37 year old female with pmHx of gastroparesis, DM, HTN and anemia, arrives to ED with complaints of upper abdominal pain associated with nausea and vomiting ongoing intermittent for "months". She states that her symptoms became worse today with eating and drinking. Patient follows with Dr. Peoples but reports that she ran out of her Dexilant medication. PMD: Dr. Danielle Hammonds Past Medical History Reviewed: Historical Data, Nursing Documentation, Vital Signs Vital Signs: Last Vital Signs Temp 98.6 F 12/24/17 02:38 Pulse 81 12/24/17 02:38 Resp 16 12/24/17 02:38 BP 121/81 12/24/17 02:38 Pulse Ox 100 12/24/17 03:31 - Medical History PMH: Anemia, Depression, Diabetes (no meds since April 2015), HTN, Migraine, Sleep Apnea (Prior to gastric sleeve) Denies: HIV, Chronic Kidney Disease - Surgical History Surgical History: Tonsillectomy, (x 3 '11,'05,'03) Denies: Pacemaker - Family History Family History: States: Unknown Family Hx - Social History Current smoker - smoking cessation education provided: No Alcohol: None Drugs: Denies - Immunization History Hx Tetanus Toxoid Vaccination: No Hx Influenza Vaccination: No Hx Pneumococcal Vaccination: No - Home Medications Home Medications: Ambulatory Orders Medication Instructions Recorded Dexlansoprazole [Dexilant] 60 mg PO DAILY 12/03/17 Enalapril Maleate [Vasotec] 2.5 mg PO BID 12/03/17 buPROPion [Bupropion HCl] 300 mg PO DAILY 12/03/17 Sulfamethoxazole/Trimethoprim 1 tab PO BID #14 tab 12/05/17 [Bactrim DS 800 mg-160 mg] Ciprofloxacin HCl [Cipro] 500 mg PO BID #20 tab 12/14/17 Ibuprofen [Motrin Tab] 1 tab PO Q6 PRN #20 tab 12/14/17 Sucralfate [Carafate] 1 gm PO TID #30 dose 12/24/17 - Allergies Allergies/Adverse Reactions: Allergies Allergy/AdvReac Type Severity Reaction Status Date / Time aspirin Allergy RASH Verified 12/24/17 02:38 Penicillins Allergy URTICARIA Verified 12/24/17 02:38 seasonal Allergy SWELLING Uncoded 12/24/17 02:38 Review of Systems ROS Statement: Except As Marked, All Systems Reviewed And Found Negative Cardiovascular: Positive for: Chest Pain Gastrointestinal: Positive for: Nausea, Vomiting, Abdominal Pain (upper). Negative for: Diarrhea, Constipation Physical Exam - Reviewed Nursing Documentation Reviewed: Yes Vital Signs Reviewed: Yes - Physical Exam Appears: Positive for: Non-toxic, No Acute Distress Head Exam: Positive for: ATRAUMATIC, NORMAL INSPECTION, NORMOCEPHALIC Skin: Positive for: Normal Color Eye Exam: Positive for: Normal appearance ENT: Positive for: Normal ENT Inspection Neck: Positive for: Normal Cardiovascular/Chest: Positive for: Regular Rate, Rhythm Respiratory: Positive for: Normal Breath Sounds Gastrointestinal/Abdominal: Positive for: Normal Exam, Soft. Negative for: Tenderness Back: Positive for: Normal Inspection. Negative for: L CVA Tenderness, R CVA Tenderness Extremity: Positive for: Normal ROM (upper/lower) Neurologic/Psych: Positive for: Alert (x3), Oriented. Negative for: Motor/ Sensory Deficits - Laboratory Results Result Diagrams: 12/24/17 03:09 12/24/17 03:09 - ECG O2 Sat by Pulse Oximetry: 100 (RA) Pulse Ox Interpretation: Normal - Progress Re-evaluation Time: 06:20 Condition: Re-examined, Improved Medical Decision Making Medical Decision Making: Initial Impression: Chest pain; vomiting Differential Diagnosis: Gastritis; gastroparesis Initial Plan: * CMP * Lipase * Urine dipstick * CBC * Accucheck * Lidocaine 2% viscous 15ml PO * Maaloax plus 30ml PO * Protonix inj 40mg IVP * Reglan 50ml IVPB * Zofran 4mg IVP Scribe Attestation: Documented by Brenda Pisano, acting as a scribe for Karlie Fairchild MD. Provider Scribe Attestation: All medical record entries made by the Scribe were at my direction and personally dictated by me. I have reviewed the chart and agree that the record accurately reflects my personal performance of the history, physical exam, medical decision making, and the department course for this patient. I have also personally directed, reviewed, and agree with the discharge instructions and disposition. Disposition - Clinical Impression Clinical Impression: Chest pain, Abdominal pain in female - Patient ED Disposition Is Patient to be Admitted: No Doctor Will See Patient In The: Office Counseled Patient/Family Regarding: Studies Performed, Diagnosis, Need For Followup - Disposition Referrals: Al Peoples MD [Medical Doctor] - Disposition: Routine/Home Disposition Time: 06:20 Condition: GOOD Additional Instructions: Take your medications as instructed. Follow up with your PCP in 2-3 days. Prescriptions: Sucralfate [Carafate] 1 gm PO TID #30 dose Instructions: Gastritis (DC)
[2017-12-24 06:32] VITALS: BP 117/86; PULSE 66; TEMP 98.1
== END 2017-12-24 06:38 | disposition home or self-care (01) ==
LOC: H.ER 02:19
DX: R07.9 Chest pain, unspecified (principal); R10.2 Pelvic and perineal pain; E11.9 Type 2 diabetes mellitus without complications; Z86.59 Personal history of other mental and behavioral disorders; Z88.0 Allergy status to penicillin; I10 Essential (primary) hypertension
CPT/HCPCS: 80053; 81025; 82948; 83690; 85025; 96374; 96375; 99285; C9113; J2270; J2405; J2765

== ENCOUNTER 2018-01-03 08:38 | Day surgery (SDC) | payer MEDICAID ==
[2018-01-03] MEDS ORDERED: Lactated Ringer's 500 ML IV ONE (09:23)
[2018-01-03 11:03] VITALS: BP 143/90; PULSE 101; RESP 23; TEMP 98.2; O2SAT 100
== END 2018-01-03 15:20 | disposition home or self-care (01) ==
LOC: H.ENDO 08:38
PROVIDERS: ATTEND Internal Medicine Gastroenterology
DX: R10.13 Epigastric pain (principal); I10 Essential (primary) hypertension; F32.9 Major depressive disorder, single episode, unspecified; F41.9 Anxiety disorder, unspecified; K29.70 Gastritis, unspecified, without bleeding; K31.89 Other diseases of stomach and duodenum; B37.81 Candidal esophagitis; K44.9 Diaphragmatic hernia without obstruction or gangrene
CPT/HCPCS: 43239; 88104; 88108; 88112; 88305; 88342; J7120

== ENCOUNTER 2018-02-10 18:35 | Inpatient (IN) | payer MEDICAID ==
[2018-02-10 18:35] VITALS: BMI 30.9
[2018-02-10] MEDS ORDERED: Sodium Chloride 0.9% 1,000 ML IV STA (20:19)
--- NOTE | 2018-02-10 21:03 | ED PDOC ---
Syncope/Near Syncope/Dizziness Time Seen by Provider: 02/10/18 19:41 Chief Complaint (Nursing): Syncope Chief Complaint (Provider): Syncope History Per: Patient History/Exam Limitations: no limitations Onset/Duration Of Symptoms: Days (x2) Current Symptoms Are (Timing): Still Present Additional Complaint(s): 37 year old female with pmHx of HTN, migrianes, and vertigo arrives to ED with complaints of dizziness following syncopal episode last night. Patient reports she was getting out of bed then she felt dizzy, short of breath with palpitations and had witnessed syncopal event by son. Patient sustained a left- sided head injury but reported that palpitations and shortness of breath subsided. She denies any active bleeding from injury, abdominal pain, vomiting, diarrhea, fever, chills, current chest pain or shortness of breath. Patient also states she is taking oral contraceptives. PMD: Dr. Danielle Brothers NIHSS Stroke Scale - Date/Time Evaluation Performed Date Performed: 02/10/18 Time Performed: 19:45 When Was NIHSS Performed: Baseline - How Severe is the Stroke Level of Consciousness: 0=Alert LOC to Questions: 0=Both comments correct LOC to commands: 0=Obeys both correctly Best Gaze: 0=Normal Visual: 0=No visual loss Facial: 0=Normal Motor Arm - Left: 0=No drift Motor Arm - Right: 0=No drift Motor Leg - Left: 0=No drift Motor Leg - Right: 0=No drift Limb Ataxia: 0=Absent Sensory: 0=Normal Best Language: 0=No aphasia Dysarthia: 0=Normal articulation Extinction & Inattention (Neglect): 0=Normal, no object Score: 0 Severity Of Stroke: 0 = No Stroke Past Medical History Reviewed: Historical Data, Nursing Documentation, Vital Signs Vital Signs: Last Vital Signs Temp 98.5 F 02/10/18 18:55 Pulse 77 02/10/18 18:55 Resp 20 02/10/18 18:55 BP 134/86 02/10/18 18:55 Pulse Ox 100 02/10/18 18:55 - Medical History PMH: Anemia, Depression, Diabetes (no meds since April 2015), HTN, Migraine, Sleep Apnea (Prior to gastric sleeve) Denies: HIV, Chronic Kidney Disease - Surgical History Surgical History: Tonsillectomy, (x 3 '11,'05,'03) Denies: Pacemaker - Family History Family History: States: Unknown Family Hx - Immunization History Hx Tetanus Toxoid Vaccination: No Hx Influenza Vaccination: No Hx Pneumococcal Vaccination: No - Home Medications Home Medications: Ambulatory Orders Medication Instructions Recorded Enalapril Maleate [Vasotec] 2.5 mg PO BID 12/03/17 - Allergies Allergies/Adverse Reactions: Allergies Allergy/AdvReac Type Severity Reaction Status Date / Time aspirin Allergy RASH Verified 02/10/18 18:55 Penicillins Allergy URTICARIA Verified 02/10/18 18:55 seasonal Allergy SWELLING Uncoded 02/10/18 18:55 Review of Systems ROS Statement: Except As Marked, All Systems Reviewed And Found Negative Constitutional: Negative for: Fever, Chills Cardiovascular: Positive for: Palpitations. Negative for: Chest Pain Respiratory: Positive for: Shortness of Breath Gastrointestinal: Negative for: Vomiting, Abdominal Pain, Diarrhea Neurological: Positive for: Headache (left-side head injury), Dizziness Physical Exam - Reviewed Nursing Documentation Reviewed: Yes Vital Signs Reviewed: Yes - Physical Exam Appears: Positive for: Non-toxic, No Acute Distress Head Exam: Positive for: ATRAUMATIC, NORMAL INSPECTION, NORMOCEPHALIC Skin: Positive for: Normal Color Eye Exam: Positive for: EOMI, PERRL, Periorbital swelling (left-sided mildly) ENT: Positive for: Other (nasal bridge tenderness on palpation (-) deformity) Neck: Positive for: Normal, Painless ROM, Supple Cardiovascular/Chest: Positive for: Regular Rate, Rhythm, Chest Non Tender. Negative for: Murmur Respiratory: Positive for: Normal Breath Sounds. Negative for: Respiratory Distress Gastrointestinal/Abdominal: Positive for: Normal Exam, Soft. Negative for: Tenderness Extremity: Positive for: Normal ROM (upper/lower). Negative for: Deformity Neurologic/Psych: Positive for: Alert, broadcast technician II-XII (grossly intact), Oriented. Negative for: Motor/Sensory Deficits - Laboratory Results Result Diagrams: 02/10/18 21:08 02/10/18 21:08 - ECG O2 Sat by Pulse Oximetry: 100 (RA) Pulse Ox Interpretation: Normal Medical Decision Making Medical Decision Making: Initial Impression: Syncope; headache; dizziness Differential diagnosis: cardiac arrythmia, ACS, PE, facial fracture, concussion , intracranial hemorrhage Initial Plan: * CT head without contrast * CT maxillofacial without contrast * EKG * Labs * IV fluids * Reglan 10mg IVP * Tylenol 650mg PO Time: 2124 --CT head FINDINGS: Brain: There is no evidence of intracranial hemorrhage. The cortical/white matter interfaces are preserved throughout the brain. There is no intracranial mass or mass effect. Midline developmental anatomy is within normal limits. No cerebellar tonsillar ectopia. Midline shift: No midline shift. Ventricles: The ventricular system is normal in size and distribution. Bones/joints: No facial fracture. Soft tissues: Mild soft tissue swelling over the anterior frontal bone. Lymph nodes: Small cervical chain and submandibular lymph nodes are present. No lymphadenopathy. Sinuses: Trace mucosal thickening of the ethmoid sinuses, likely within normal limits. Supraorbital pneumatization of the ethmoid sinuses. Mastoid air cells: The mastoid air cells are clear. Auditory system: Debris within the left external auditory canal likely represents cerumen. Orbits: The orbits are normal. IMPRESSION: 1. No acute intracranial abnormality. 2. Mild soft tissue swelling over the anterior frontal bone. 3. No facial fracture. Time: 2125 --CT maxillofacial FINDINGS: Bones/joints: No facial fracture. Soft tissues: Mild soft tissue swelling over the anterior frontal bone. Lymph nodes: Small cervical chain and submandibular lymph nodes are present. No lymphadenopathy. Orbits: The orbits are normal. Sinuses: Trace mucosal thickening of the ethmoid sinuses, likely within normal limits. Supraorbital pneumatization of the ethmoid sinuses. No air-fluid levels. Mastoid air cells: The mastoid air cells are clear. Auditory system: Debris within the left external auditory canal likely represents cerumen. Brain: There is no evidence of intracranial hemorrhage. The cortical/white matter interfaces are preserved throughout the brain. There is no intracranial mass or mass effect. Midline developmental anatomy is within normal limits. No cerebellar tonsillar ectopia. Midline shift: No midline shift. Ventricles: The ventricular system is normal in size and distribution. IMPRESSION: 1. No acute intracranial abnormality. 2. Mild soft tissue swelling over the anterior frontal bone. 3. No facial fracture Scribe Attestation: Documented by Brenda Pisano, acting as a scribe for Karlie Fairchild MD. Provider Scribe Attestation: All medical record entries made by the Scribe were at my direction and personally dictated by me. I have reviewed the chart and agree that the record accurately reflects my personal performance of the history, physical exam, medical decision making, and the department course for this patient. I have also personally directed, reviewed, and agree with the discharge instructions and disposition. Disposition - Clinical Impression Clinical Impression: Syncope, Chest pain, Headache - Patient ED Disposition Is Patient to be Admitted: Yes Discussed With DrNancy: Khai Elizondo Counseled Patient/Family Regarding: Studies Performed, Diagnosis - Disposition Disposition Time: 22:00 Condition: FAIR - Pt Status Changed To: Hospital Disposition Of: Observation - POA Present On Arrival: Falls Or Trauma SEDRICK Risk Score for UA/NSTEMI - SEDRICK Risk Score Age > 64: NO 3 or more CAD Risk Factors: NO Known CAD (Stenosis greater than 50%): NO Aspirin use in past 7 days: NO Severe Angina: NO EKG ST changes greater than 0.5mm: NO Positive Cardiac Marker: NO SEDRICK Score: 0 Risk %: 5% Wells Criteria for PE - Wells Criteria for Pulmonary Embolism Clinical Signs and Symptoms of DVT: No P.E is #1 Diagnosis, or Equally Likely: No Heart Rate >100: No Immobilization at least 3 days;Surgery previous 4 weeks: No Previous, objectively diagnosed PE or DVT: No Hemoptysis: No Malignancy w/treatment within 6 months, or palliative: No Total Score: 0 rTPA Inclusion/Exclusion - Refusal of Treatment Patient Refused Treatment: No - Inclusion Criteria for Altepase Patient is 18 years or Older: Yes Clinical DX Ischemic Stroke Cause Neurological Deficit: No Time of Onset Established Less Than 270 Mins Before TX Begin: No Risk/Benefit Discussed With Patient/Family Member Present: No
[2018-02-10 21:12] LABS: BASO % 0.8 % (0.0-2.0); EOS # 0.1 K/uL (0.0-0.7); EOS % 2.3 % (0.0-4.0); HEMOGLOBIN 10.6 g/dL (12.0-16.0); LYMPH # 1.1 K/uL (1.0-4.3); LYMPH % 24.1 % (20.0-40.0); MEAN CELL VOLUME 73.6 fl (81.0-99.0); MEAN CORPUSCULAR HEMOGLOBIN 23.5 pg (27.0-31.0); MEAN CORPUSCULAR HGB CONC 31.9 g/dL (33.0-37.0); MEAN PLATELET VOLUME 8.6 fl (7.2-11.7); MONO # 0.4 K/uL (0.0-0.8); MONO % 8.5 % (0.0-10.0); NEUT % 64.3 % (50.0-75.0); RBC 4.53 Mil/uL (3.80-5.20); RED CELL DISTRIBUTION WIDTH 15.5 % (11.5-14.5); WHITE BLOOD COUNT 4.7 K/uL (4.8-10.8)
[2018-02-10 21:21] LABS: BLOOD UREA NITROGEN 15 mg/dl (7-17); CALCIUM 9.2 mg/dL (8.4-10.2); GFR NON-AFRICAN AMERICAN > 60
[2018-02-11] MEDS ORDERED: Influenza Vaccine 18yr & older 0.5 ML/45 MCG SYR (Inactive don't use) IM ONE (06:19)
--- NOTE | 2018-02-11 10:16 | CT ---
Date of service: 02/10/2018 PROCEDURE: CT HEAD WITHOUT CONTRAST. HISTORY: syncope, head injury COMPARISON: 09/16/2017 TECHNIQUE: Axial computed tomography images were obtained through the head/brain without intravenous contrast. Radiation dose: Total exam DLP = 905 mGy-cm. This CT exam was performed using one or more of the following dose reduction techniques: Automated exposure control, adjustment of the mA and/or kV according to patient size, and/or use of iterative reconstruction technique. FINDINGS: HEMORRHAGE: No intracranial hemorrhage. BRAIN: No mass effect or edema. No atrophy or chronic microvascular ischemic changes. VENTRICLES: Unremarkable. No hydrocephalus. CALVARIUM: Unremarkable. PARANASAL SINUSES: Minor mucosal thickening. MASTOID AIR CELLS: Unremarkable as visualized. No inflammatory changes. OTHER FINDINGS: Minor soft tissue swelling is seen overlying the frontal bone. IMPRESSION: Unremarkable CT scan of the brain for intracranial hemorrhage or recent infarct. No interval change from prior examination. This agrees with preliminary report provided by the on-call radiologist.
--- NOTE | 2018-02-11 10:19 | CT ---
Date of service: 02/10/2018 PROCEDURE: CT MAXILLOFACIAL BONES WITHOUT CONTRAST HISTORY: facial injury COMPARISON: None available. TECHNIQUE: Contiguous axial CT images of the maxillofacial bones were obtained. Coronal and sagittal reformats were generated. Radiation dose: Total exam DLP = 764 mGy-cm. This CT exam was performed using one or more of the following dose reduction techniques: Automated exposure control, adjustment of the mA and/or kV according to patient size, and/or use of iterative reconstruction technique. FINDINGS: NASAL BONES: Unremarkable. ORBITS: Unremarkable. PARANASAL SINUSES/ MASTOIDS: Minor mucosal thickening is seen without fluid level. MAXILLA: Unremarkable. MANDIBLE/ TEMPOROMANDIBULAR JOINTS: Unremarkable. SKULL BASE: Unremarkable. TEMPORAL BONES: Middle ears and mastoid grossly unremarkable. OTHER FINDINGS: Globes and retro-orbital regions are unremarkable. Posterior nasopharynx is within normal limits. Mild soft tissue swelling is seen overlying the frontal bone region. IMPRESSION: No evidence of facial bone fracture. This agrees with preliminary report provided by the on-call radiologist.
--- NOTE | 2018-02-11 10:45 | RAD ---
PROCEDURE: Radiographs of the left great toe. TECHNIQUE:: AP radiograph of the left foot, with oblique and lateral view of the left second toe. COMPARISON: None. FINDINGS: BONES: Three views of the left foot were performed. No fracture is seen. No dislocation is identified. No erosions are noted. Mild soft tissue swelling is seen. Minor degenerative change of the 1st metatarsal phalangeal joint is noted. JOINTS: See above. SOFT TISSUES: See above. OTHER FINDINGS: None. IMPRESSION: No appreciable fracture or dislocation.
--- NOTE | 2018-02-11 15:23 | CP.PCM.CON ---
History of Present Illness - History of Present Illness History of Present Illness: Ms. Quinteros is a 37-year-old woman with a past medical history of HTN, migrianes, and vertigo who states that she fell after she got out of bed the night before admission. She denied losing consciousness. She did hit her head. Non- contrast CT scan of the head was unremarkable. She states that she continues to have headache and severe vertigo associated with nausea and vomiting. Meclizine does not always help. Review of Systems - Review of Systems All systems: reviewed and no additional remarkable complaints except Past Patient History - Infectious Disease Hx of Infectious Diseases: None - Past Medical History & Family History Past Medical History?: Yes - Past Social History Smoking Status: Light Smoker < 10 Cigarettes Daily - CARDIAC Hx Cardiac Disorders: Yes Hx Hypertension: Yes Hx Pacemaker: No - PULMONARY Hx Sleep Apnea: Yes (Prior to gastric sleeve) - NEUROLOGICAL Hx Migraine: Yes Hx Syncope: Yes Hx Vertigo: Yes - HEENT Hx HEENT Problems: No - RENAL Hx Chronic Kidney Disease: No - ENDOCRINE/METABOLIC Hx Diabetes Mellitus Type 2: No - HEMATOLOGICAL/ONCOLOGICAL Hx AIDS: No Hx Anemia: Yes Hx Human Immunodeficiency Virus (HIV): No - INTEGUMENTARY Hx Dermatological Problems: No - MUSCULOSKELETAL/RHEUMATOLOGICAL Hx Musculoskeletal Disorders: No Hx Falls: No - GASTROINTESTINAL Hx Gastrointestinal Disorders: Yes Hx Gastroesophageal Reflux: Yes Hx Ulcer: Yes Other/Comment: gastric sleeve. esophagitis - GENITOURINARY/GYNECOLOGICAL Hx Genitourinary Disorders: No - PSYCHIATRIC Hx Depression: Yes Hx Substance Use: No - SURGICAL HISTORY Hx Section: Yes (x3) Hx Gastric Bypass Surgery: Yes Hx Tonsillectomy: Yes - ANESTHESIA Hx Anesthesia: Yes Hx Anesthesia Reactions: No Hx Malignant Hyperthermia: No Has any member of the family had a problem w/ anesthesia?: No Meds Allergies/Adverse Reactions: Allergies Allergy/AdvReac Type Severity Reaction Status Date / Time aspirin Allergy RASH Verified 02/10/18 18:55 Penicillins Allergy URTICARIA Verified 02/10/18 18:55 seasonal Allergy SWELLING Uncoded 02/10/18 18:55 - Medications Medications: Current Medications Acetaminophen (Tylenol 325mg Tab) 650 mg PO Q6 PRN PRN Reason: Headache Last Admin: 02/11/18 09:08 Dose: 650 mg Cyclobenzaprine HCl (Flexeril) 10 mg PO BID HENRY Last Admin: 02/11/18 09:07 Dose: 10 mg Physical Exam - Neurological Exam Neurological exam: Alert, CN II-XII Intact, Normal Gait, Oriented x3, Reflexes Normal Additional comments: Nystagmus on right lateral gaze associated with nausea. Results - Vital Signs Recent Vital Signs: Last Vital Signs Temp 98.2 F 02/11/18 12:08 Pulse 76 02/11/18 12:08 Resp 20 02/11/18 12:08 BP 105/64 02/11/18 12:08 Pulse Ox 99 02/11/18 12:08 - Labs Result Diagrams: 02/10/18 21:08 02/10/18 21:08 Labs: Laboratory Results - last 24 hr 02/10/18 02/10/18 02/10/18 21:08 21:08 21:08 WBC 4.7 L RBC 4.53 Hgb 10.6 L Hct 33.3 L MCV 73.6 L D MCH 23.5 L MCHC 31.9 L RDW 15.5 H Plt Count 323 MPV 8.6 Neut % (Auto) 64.3 Lymph % (Auto) 24.1 Greene % (Auto) 8.5 Eos % (Auto) 2.3 Baso % (Auto) 0.8 Neut # (Auto) 3.0 Lymph # (Auto) 1.1 Greene # (Auto) 0.4 Eos # (Auto) 0.1 Baso # (Auto) 0.0 D-Dimer, Quantitative < 200 Sodium 141 Potassium 3.8 Chloride 106 Carbon Dioxide 22 Anion Gap 17 BUN 15 Creatinine 0.6 L Est GFR ( Amer) > 60 Est GFR (Non-Af Amer) > 60 Random Glucose 129 H Calcium 9.2 Troponin I < 0.0120 Vitamin B12 TSH 3rd Generation 02/11/18 08:58 WBC RBC Hgb Hct MCV MCH MCHC RDW Plt Count MPV Neut % (Auto) Lymph % (Auto) Greene % (Auto) Eos % (Auto) Baso % (Auto) Neut # (Auto) Lymph # (Auto) Greene # (Auto) Eos # (Auto) Baso # (Auto) D-Dimer, Quantitative Sodium Potassium Chloride Carbon Dioxide Anion Gap BUN Creatinine Est GFR ( Amer) Est GFR (Non-Af Amer) Random Glucose Calcium Troponin I Vitamin B12 255 TSH 3rd Generation 0.90 Assessment & Plan (1) Headache Assessment and Plan: Could be a vestibular migraine. Will give the patient decadron 10 mg IV along with magnesium sulfate 2 grams IV and depakote 500 mg IV once. Status: Acute (2) Migraine Assessment and Plan: Likely vestibular migraine. Status: Acute (3) Vertigo Assessment and Plan: Will stop the meclizine and try valium 2 mg Q8 instead. Will obtain EEG and CTA of the head/neck . Status: Acute
[2018-02-11] MEDS ORDERED: Magnesium Sulfate 2 gm/50 ml 2 GM/50 ML BAG IVPB ONE (15:39)
[2018-02-11] MEDS ORDERED: Dexamethasone 10 MG in Sodium Chloride 0.9% 50 ML IVPB ONE (15:39)
[2018-02-11] MEDS ORDERED: Valproate 500 MG in Sodium Chloride 0.9% 100 ML IVPB ONE ×2 (15:39→16:00)
--- NOTE | 2018-02-11 17:32 | CARD ---
APPROVED REPORT Date of service: 02/10/2018 <Conclusion> Normal sinus rhythm Normal ECG
--- NOTE | 2018-02-11 21:18 | HP ---
CHIEF COMPLAINT: Passed out. HISTORY OF PRESENT ILLNESS: This is 37-year-old female known case of migraine, hypertension, and vertigo who passed out night before admission, so the patient was brought to the emergency room and was admitted for further management. The patient had that episode while the patient was getting out of bed. The patient felt dizzy and had palpitation and shortness of breath and then passed out. That event was witnessed by son. The patient did have some superficial injury on the head and was admitted for further management. REVIEW OF SYSTEM: Positive for dizziness, syncope, and head injury. Review of systems otherwise is negative for headache, chest pain, shortness of breath, nausea, vomiting, diarrhea, constipation, any new joint or extremity pain. Review of systems of all other organ system is unremarkable. PAST MEDICAL HISTORY: Significant for borderline diabetes, hypertension, migraine, morbid obesity, sleep apnea, and anemia. PAST SURGICAL HISTORY: Remarkable for section and tonsillectomy. PERSONAL HISTORY: The patient is currently nonsmoker, nondrinker, no substance abuse. MEDICATIONS: The patient is on 2.5 mg Vasotec twice a day. ALLERGIES: THE PATIENT IS ALLERGIC TO ASPIRIN, PENICILLIN, AND SOME SEASONAL ALLERGY. FAMILY HISTORY: Noncontributory. PHYSICAL EXAMINATION: GENERAL: A well-built, well-nourished, obese 37-year-old female, in no acute distress. VITAL SIGNS: Temperature afebrile, pulse 65, respirations 20, and blood pressure 116/75. HEENT: Pupils are reacting to light. No JVD. No thyromegaly. No lymphadenopathy. No nystagmus. Normocephalic and atraumatic scalp. HEART: S1 and S2, normal and regular. No significant murmur, gallop, or rub is heard. LUNGS: Show good bilateral air exchange. No rales or rhonchi. ABDOMEN: Soft and nontender. No organomegaly. No fluids. Bowel sounds are plus and normal. EXTREMITIES: No edema. No calf swelling. No tenderness. No acute ischemia. CENTRAL NERVOUS SYSTEM: The patient is alert, awake, and oriented x3. There is no sign of any acute focal motor or sensory neurological deficits. DIAGNOSTIC DATA: Available diagnostic data reviewed. Telemetry monitoring so far does not reveal significant arrhythmias. WBC 4.7, hemoglobin 10.6, hematocrit 33.3, platelets 322. Sodium 141, potassium 3.8, chloride 106, bicarb 25, BUN 15, creatinine 0.6. EKG shows normal sinus without any acute ST-T changes. All x-rays are unremarkable. ADMITTING IMPRESSION: Syncope, hypertension, morbid obesity with body mass index of 29. PLAN: As ordered. Case and plan discussed with the patient. Khai Elizondo MD
[2018-02-12 04:54] LABS: HEMOGLOBIN 11.3 g/dL (12.0-16.0); MEAN CELL VOLUME 74.2 fl (81.0-99.0); MEAN CORPUSCULAR HEMOGLOBIN 23.3 pg (27.0-31.0); MEAN CORPUSCULAR HGB CONC 31.5 g/dL (33.0-37.0); RBC 4.84 Mil/uL (3.80-5.20); RED CELL DISTRIBUTION WIDTH 15.1 % (11.5-14.5); WHITE BLOOD COUNT 3.3 K/uL (4.8-10.8)
[2018-02-12 05:03] LABS: ALBUMIN 4.2 g/dL (3.5-5.0); ALT/SGPT 19 U/L (9-52); AST/SGOT 17 U/L (14-36); BLOOD UREA NITROGEN 10 mg/dl (7-17); CALCIUM 9.5 mg/dL (8.4-10.2); GFR NON-AFRICAN AMERICAN > 60
--- NOTE | 2018-02-12 11:58 | PN ---
DATE: 02/12/2018 SUBJECTIVE: The patient seen and examined. Interim events noted. Consult noted and appreciated. Neurology followup intervention noted and appreciated. Case was discussed with Neurology. Chatted over the phone. The patient feels okay, but still has occasional headaches. No chest pain. No shortness of breath. Dizziness is slightly better. PHYSICAL EXAMINATION: GENERAL: The patient is in no acute distress. VITAL SIGNS: Stable. HEART: S1, S2 normal and regular. LUNGS: Good bilateral air exchange. ABDOMEN: Soft, and nontender. EXTREMITIES: No edema. No calf swelling. No tenderness. No acute ischemia. DESKTOP SUPPORT ASSOCIATE: Exam is essentially unchanged. DIAGNOSTIC DATA: Available diagnostic data reviewed. Telemetry monitoring does not reveal significant arrhythmias. Her vitamin B12 level is significantly low. Labs discussed with the patient. Vitamin B12 supplementation discussed. Plan as ordered. Case and plan discussed with the patient. Khai Elizondo MD
--- NOTE | 2018-02-12 21:53 | CP.PCM.CON ---
History of Present Illness - History of Present Illness History of Present Illness: Consultation for evaluation of syncope and palpitations HPI: 37-year-old female presenting with complaints of episode of dizziness and syncope. Patient apparently was getting out of bed at nighttime when she felt dizzy mildly short of breath with an episode of palpitation episode of near syncopal episode. She sustained an injury to the left side of the head. Denied having any chest pain shortness of breath palpitations only medication she is taking oral contraceptive pill. Review of Systems - Review of Systems Systems not reviewed;Unavailable: Acuity of Condition - Constitutional Constitutional: As Per HPI - EENT Eyes: As Per HPI Ears: As Per HPI Nose/Mouth/Throat: As Per HPI - Breasts Breasts: As Per HPI - Cardiovascular Cardiovascular: As Per HPI - Respiratory Respiratory: As Per HPI - Gastrointestinal Gastrointestinal: As Per HPI - Genitourinary Genitourinary: As Per HPI - Reproductive: Female Reproductive:Female: As Per HPI - Menstruation Menstruation: As Per HPI - Musculoskeletal Musculoskeletal: As Per HPI - Integumentary Integumentary: As Per HPI - Neurological Neurological: As Per HPI - Psychiatric Psychiatric: As Per HPI - Endocrine Endocrine: As Per HPI - Hematologic/Lymphatic Hematologic: As Per HPI Past Patient History - Infectious Disease Hx of Infectious Diseases: None - Past Medical History & Family History Past Medical History?: Yes - Past Social History Smoking Status: Light Smoker < 10 Cigarettes Daily - CARDIAC Hx Hypertension: Yes Hx Pacemaker: No - PULMONARY Hx Sleep Apnea: Yes (Prior to gastric sleeve) - NEUROLOGICAL Hx Migraine: Yes - HEENT Hx HEENT Problems: No - RENAL Hx Chronic Kidney Disease: No - ENDOCRINE/METABOLIC Hx Diabetes Mellitus Type 2: No - HEMATOLOGICAL/ONCOLOGICAL Hx Anemia: Yes Hx Human Immunodeficiency Virus (HIV): No - INTEGUMENTARY Hx Dermatological Problems: No - MUSCULOSKELETAL/RHEUMATOLOGICAL Hx Musculoskeletal Disorders: No Hx Falls: No - GASTROINTESTINAL Hx Gastrointestinal Disorders: Yes Hx Gastroesophageal Reflux: Yes Hx Ulcer: Yes Other/Comment: gastric sleeve. esophagitis - GENITOURINARY/GYNECOLOGICAL Hx Genitourinary Disorders: No - PSYCHIATRIC Hx Depression: Yes - SURGICAL HISTORY Hx Tonsillectomy: Yes - ANESTHESIA Hx Anesthesia: Yes Hx Anesthesia Reactions: No Hx Malignant Hyperthermia: No Has any member of the family had a problem w/ anesthesia?: No Meds Allergies/Adverse Reactions: Allergies Allergy/AdvReac Type Severity Reaction Status Date / Time aspirin Allergy RASH Verified 02/10/18 18:55 Penicillins Allergy URTICARIA Verified 02/10/18 18:55 seasonal Allergy SWELLING Uncoded 02/10/18 18:55 - Medications Medications: Current Medications Acetaminophen (Tylenol 325mg Tab) 650 mg PO Q6 PRN PRN Reason: Headache Last Admin: 02/11/18 17:14 Dose: 650 mg Cyanocobalamin (Vitamin B12 1000 Mcg/Ml Inj) 1,000 mcg IM DAILY [facility] Last Admin: 02/12/18 09:04 Dose: 1,000 mcg Cyclobenzaprine HCl (Flexeril) 10 mg PO BID [facility] Last Admin: 02/12/18 16:45 Dose: 10 mg Diazepam (Valium) 2 mg PO BID PRN PRN Reason: vertigo Last Admin: 02/11/18 19:53 Dose: 2 mg Ketorolac Tromethamine (Toradol) 10 mg PO Q6 PRN PRN Reason: Headache Last Admin: 02/12/18 09:05 Dose: 10 mg Physical Exam - Constitutional Appears: Well - Head Exam Head Exam: ATRAUMATIC, NORMAL INSPECTION, NORMOCEPHALIC - Eye Exam Eye Exam: EOMI, Normal appearance, PERRL Pupil Exam: NORMAL ACCOMODATION, PERRL - ENT Exam ENT Exam: Mucous Membranes Moist, Normal Exam - Neck Exam Neck exam: Positive for: Normal Inspection - Respiratory Exam Respiratory Exam: Clear to Auscultation Bilateral, NORMAL BREATHING PATTERN - Cardiovascular Exam Cardiovascular Exam: REGULAR RHYTHM - GI/Abdominal Exam GI & Abdominal Exam: Normal Bowel Sounds, Soft. absent: Tenderness - Extremities Exam Extremities exam: Positive for: normal inspection - Back Exam Back exam: NORMAL INSPECTION - Neurological Exam Neurological exam: Alert, CN II-XII Intact, Normal Gait, Oriented x3, Reflexes Normal - Psychiatric Exam Psychiatric exam: Normal Affect, Normal Mood - Skin Skin Exam: Dry, Intact, Normal Color, Warm Results - Vital Signs Recent Vital Signs: Last Vital Signs Temp 98.9 F 02/12/18 20:13 Pulse 77 02/12/18 20:13 Resp 16 02/12/18 20:13 BP 113/70 02/12/18 20:13 Pulse Ox 99 02/12/18 20:13 - Labs Result Diagrams: 02/13/18 05:00 02/13/18 05:00 Labs: Laboratory Results - last 24 hr 02/11/18 02/12/18 02/12/18 08:58 04:10 04:10 WBC 3.3 L RBC 4.84 Hgb 11.3 L Hct 35.9 MCV 74.2 L MCH 23.3 L MCHC 31.5 L RDW 15.1 H Plt Count 310 Sodium 140 Potassium 4.6 Chloride 105 Carbon Dioxide 22 Anion Gap 18 BUN 10 Creatinine 0.6 L Est GFR ( Amer) > 60 Est GFR (Non-Af Amer) > 60 Random Glucose 115 H Hemoglobin A1c 5.4 Calcium 9.5 Total Bilirubin 0.3 AST 17 ALT 19 Alkaline Phosphatase 58 Total Protein 8.2 Albumin 4.2 Globulin 4.1 H Albumin/Globulin Ratio 1.0 Assessment & Plan (1) Syncope Assessment and Plan: echo telemetry neuro eval orthostatics Status: Acute (2) Headache Status: Acute (3) HTN (hypertension) Status: Acute (4) Migraine Status: Acute
[2018-02-13 05:28] LABS: HEMOGLOBIN 10.4 g/dL (12.0-16.0); MEAN CELL VOLUME 74.2 fl (81.0-99.0); MEAN CORPUSCULAR HEMOGLOBIN 23.4 pg (27.0-31.0); MEAN CORPUSCULAR HGB CONC 31.6 g/dL (33.0-37.0); RBC 4.46 Mil/uL (3.80-5.20); RED CELL DISTRIBUTION WIDTH 15.3 % (11.5-14.5); WHITE BLOOD COUNT 4.8 K/uL (4.8-10.8)
[2018-02-13 06:06] LABS: ALBUMIN 3.5 g/dL (3.5-5.0); ALT/SGPT 14 U/L (9-52); AST/SGOT 18 U/L (14-36); BLOOD UREA NITROGEN 20 mg/dl (7-17); CALCIUM 8.7 mg/dL (8.4-10.2); GFR NON-AFRICAN AMERICAN > 60
[2018-02-13] MEDS ORDERED: Iodixanol 320 MG/ML 100 ML BOTTLE IV ONE (15:25)
[2018-02-13] MEDS ORDERED: Sodium Chloride 0.9% 50 ML IV ONE (15:25)
--- NOTE | 2018-02-13 19:58 | CP.PCM.PN ---
<Brenda Aguirre - Last Filed: 02/13/18 19:54> Subjective - Date & Time of Evaluation Date of Evaluation: 02/13/18 Time of Evaluation: 19:00 - Subjective Subjective: still feeling dizzy occ., no syncope or CP Objective - Vital Signs/Intake and Output Vital Signs (last 24 hours): Temp Pulse Resp BP Pulse Ox 98.4 F 86 16 127/78 100 02/13/18 15:59 02/13/18 15:59 02/13/18 15:59 02/13/18 15:59 02/13/18 15:59 - Medications Medications: Current Medications Acetaminophen (Tylenol 325mg Tab) 650 mg PO Q6 PRN PRN Reason: Headache Last Admin: 02/11/18 17:14 Dose: 650 mg Cyanocobalamin (Vitamin B12 1000 Mcg/Ml Inj) 1,000 mcg IM DAILY [facility] Last Admin: 02/13/18 08:06 Dose: 1,000 mcg Cyclobenzaprine HCl (Flexeril) 10 mg PO BID [facility] Last Admin: 02/13/18 16:43 Dose: 10 mg Diazepam (Valium) 2 mg PO BID PRN PRN Reason: vertigo Last Admin: 02/13/18 13:03 Dose: 2 mg Ketorolac Tromethamine (Toradol) 10 mg PO Q6 PRN PRN Reason: Headache Last Admin: 02/13/18 16:42 Dose: 10 mg - Labs Labs: 02/13/18 05:00 02/13/18 05:00 - Constitutional Appears: Well, No Acute Distress - Head Exam Head Exam: ATRAUMATIC, NORMAL INSPECTION - Eye Exam Eye Exam: EOMI, Normal appearance Pupil Exam: NORMAL ACCOMODATION, PERRL - ENT Exam ENT Exam: Mucous Membranes Moist - Neck Exam Neck Exam: Full ROM - Respiratory Exam Respiratory Exam: Clear to Ausculation Bilateral - Cardiovascular Exam Cardiovascular Exam: REGULAR RHYTHM - GI/Abdominal Exam GI & Abdominal Exam: Soft, Normal Bowel Sounds - Extremities Exam Extremities Exam: Full ROM, Normal Capillary Refill, Normal Inspection - Back Exam Back Exam: NORMAL INSPECTION - Neurological Exam Neurological Exam: Alert, Awake, Oriented x3 - Psychiatric Exam Psychiatric exam: Normal Affect - Skin Skin Exam: Intact, Normal Color, Warm Assessment and Plan - Assessment and Plan (Free Text) Assessment: 37 y/o with (1) Syncope echo done,, continue telemetry, neuro eval (2) Headache continue with current management (3) HTN (hypertension) chronic and stable (4) Migrain Acute and stable <Khai Elizondo K - Last Filed: 02/14/18 10:50> Objective - Vital Signs/Intake and Output Vital Signs (last 24 hours): Temp Pulse Resp BP Pulse Ox 97.7 F 71 20 127/86 99 02/14/18 09:05 02/14/18 09:05 02/14/18 09:05 02/14/18 09:05 02/14/18 09:05 - Medications Medications: Current Medications Acetaminophen (Tylenol 325mg Tab) 650 mg PO Q6 PRN PRN Reason: Headache Last Admin: 02/11/18 17:14 Dose: 650 mg Cyanocobalamin (Vitamin B12 1000 Mcg/Ml Inj) 1,000 mcg IM DAILY [facility] Last Admin: 02/14/18 09:20 Dose: 1,000 mcg Cyclobenzaprine HCl (Flexeril) 10 mg PO BID [facility] Last Admin: 02/14/18 09:20 Dose: 10 mg Diazepam (Valium) 2 mg PO BID PRN PRN Reason: vertigo Last Admin: 02/13/18 13:03 Dose: 2 mg Ketorolac Tromethamine (Toradol) 10 mg PO Q6 PRN PRN Reason: Headache Last Admin: 02/14/18 09:21 Dose: 10 mg - Labs Labs: 02/13/18 05:00 02/13/18 05:00 Assessment and Plan - Assessment and Plan (Free Text) Assessment: Patient was personally seen and examined by me in rounds with residents. Available labs and diagnostic data reviewed. Case, Patient's condition and management plan discussed with residents in rounds. Agree with resident's progress note. Plan: As ordered.
--- NOTE | 2018-02-13 23:03 | CARD ---
APPROVED REPORT Date of service: 02/11/2018 EXAM: Two-dimensional and M-mode echocardiogram with Doppler and color Doppler. Other Information Quality : GoodRhythm : NSR INDICATION Syncope 2D DIMENSIONS IVSd1.17 (0.7-1.1cm)LVDd4.18 (3.9-5.9cm) LVOT Diameter2.23 (1.8-2.4cm)PWd1.18 (0.7-1.1cm) IVSs1.33 (0.8-1.2cm)LVDs3.27 (2.5-4.0cm) FS (%) 21.7 %PWs1.49 (0.8-1.2cm) M-Mode DIMENSIONS Left Atrium (MM)4.56 (2.5-4.0cm)IVSd0.88 (0.7-1.1cm) Aortic Root2.79 (2.2-3.7cm)LVDd5.71 (4.0-5.6cm) Aortic Cusp Exc.2.29 (1.5-2.0cm)PWd1.00 (0.7-1.1cm) IVSs1.47 cmFS (%) 41 % LVDs3.35 (2.0-3.8cm)PWs1.47 cm Aortic Valve AoV Peak Qbleorut795.1cm/sAoV VTI26.4cmAO Peak GR.9mmHg LVOT Peak Pnunbrpx40.4cm/sLVOT VTI17.26cmAO Mean GR.5mmHg KARY (VMAX)1.27iw0QLW (VTI)1.39cm2 Mitral Valve MV E Sjhdnapi32.4cm/sMV DECEL [id number] A Jvwagiwh61.6cm/s MV UQU88djV/A ratio1.5MVA (PHT)3.81cm2 TDI Lateral E' Peak V13.12cm/sMedial E' Peak V11.65cm/sE/Lateral E'7.0 E/Medial E'7.8 Pulmonary Valve PV Peak Lbeemynd46.1cm/s LEFT VENTRICLE The left ventricle is normal size. There is normal left ventricular wall thickness. Left ventricle systolic function is low normal. The Ejection Fraction is 50-55%. There is normal LV segmental wall motion. The left ventricular diastolic function is normal. No left ventricle thrombus noted on this study. There is no ventricular septal defect visualized. There is no left ventricular aneurysm. There is no mass noted in the left ventricle. RIGHT VENTRICLE The right ventricle is normal size. There is normal right ventricular wall thickness. The right ventricular systolic function is normal. ATRIA The left atrium is borderline dilated. The right atrium size is normal. The interatrial septum is intact with no evidence for an atrial septal defect. AORTIC VALVE The aortic valve is normal in structure. No aortic regurgitation is present. There is no aortic valvular stenosis. There is no aortic valvular vegetation. MITRAL VALVE The mitral valve is normal in structure. There is no evidence of mitral valve prolapse. There is no mitral valve stenosis. Mitral regurgitation is trace to mild. TRICUSPID VALVE The tricuspid valve is normal in structure. There is trace tricuspid regurgitation. There is no tricuspid valve prolapse or vegetation. There is no tricuspid valve stenosis. PULMONIC VALVE The pulmonary valve is normal in structure. There is no pulmonic valvular regurgitation. There is no pulmonic valvular stenosis. GREAT VESSELS The aortic root is normal in size. Dilated IVC with poor inspiration collapse is consistent with elevated right atrial pressure. PERICARDIAL EFFUSION The pericardium appears normal. There is no pleural effusion. <Conclusion> Left ventricle systolic function is low normal. The Ejection Fraction is 50-55%. Mitral regurgitation is trace to mild. Dilated IVC with poor inspiration collapse is consistent with elevated right atrial pressure.
--- NOTE | 2018-02-14 09:14 | CP.PCM.PN ---
Subjective - Date & Time of Evaluation Date of Evaluation: 02/14/18 Time of Evaluation: 09:12 - Subjective Subjective: echo reviewed Objective - Vital Signs/Intake and Output Vital Signs (last 24 hours): Temp Pulse Resp BP Pulse Ox 97.7 F 71 20 127/86 99 02/14/18 09:05 02/14/18 09:05 02/14/18 09:05 02/14/18 09:05 02/14/18 09:05 - Medications Medications: Current Medications Acetaminophen (Tylenol 325mg Tab) 650 mg PO Q6 PRN PRN Reason: Headache Last Admin: 02/11/18 17:14 Dose: 650 mg Cyanocobalamin (Vitamin B12 1000 Mcg/Ml Inj) 1,000 mcg IM DAILY [facility] Last Admin: 02/13/18 08:06 Dose: 1,000 mcg Cyclobenzaprine HCl (Flexeril) 10 mg PO BID [facility] Last Admin: 02/13/18 16:43 Dose: 10 mg Diazepam (Valium) 2 mg PO BID PRN PRN Reason: vertigo Last Admin: 02/13/18 13:03 Dose: 2 mg Ketorolac Tromethamine (Toradol) 10 mg PO Q6 PRN PRN Reason: Headache Last Admin: 02/13/18 22:46 Dose: 10 mg - Labs Labs: 02/13/18 05:00 02/13/18 05:00 - Constitutional Appears: Well - Head Exam Head Exam: ATRAUMATIC, NORMAL INSPECTION, NORMOCEPHALIC - Eye Exam Eye Exam: EOMI, Normal appearance, PERRL Pupil Exam: NORMAL ACCOMODATION, PERRL - ENT Exam ENT Exam: Mucous Membranes Moist, Normal Exam - Neck Exam Neck Exam: Full ROM, Normal Inspection. absent: Lymphadenopathy - Respiratory Exam Respiratory Exam: Clear to Ausculation Bilateral, NORMAL BREATHING PATTERN - Cardiovascular Exam Cardiovascular Exam: REGULAR RHYTHM, +S1, +S2. absent: Murmur - GI/Abdominal Exam GI & Abdominal Exam: Soft, Normal Bowel Sounds. absent: Tenderness - Extremities Exam Extremities Exam: Full ROM, Normal Capillary Refill, Normal Inspection. absent : Joint Swelling, Pedal Edema - Back Exam Back Exam: NORMAL INSPECTION - Neurological Exam Neurological Exam: Alert, Awake, CN II-XII Intact, Normal Gait, Oriented x3 - Psychiatric Exam Psychiatric exam: Normal Affect, Normal Mood - Skin Skin Exam: Dry, Intact, Normal Color, Warm Assessment and Plan (1) Syncope Status: Acute (2) Headache Status: Acute (3) HTN (hypertension) Status: Acute (4) Migraine Status: Acute
--- NOTE | 2018-02-14 09:21 | CP.PCM.PN ---
Subjective - Date & Time of Evaluation Date of Evaluation: 02/13/18 Time of Evaluation: 10:00 - Subjective Subjective: occasional dizziness Objective - Vital Signs/Intake and Output Vital Signs (last 24 hours): Temp Pulse Resp BP Pulse Ox 97.7 F 71 20 127/86 99 02/14/18 09:05 02/14/18 09:05 02/14/18 09:05 02/14/18 09:05 02/14/18 09:05 - Medications Medications: Current Medications Acetaminophen (Tylenol 325mg Tab) 650 mg PO Q6 PRN PRN Reason: Headache Last Admin: 02/11/18 17:14 Dose: 650 mg Cyanocobalamin (Vitamin B12 1000 Mcg/Ml Inj) 1,000 mcg IM DAILY [facility] Last Admin: 02/13/18 08:06 Dose: 1,000 mcg Cyclobenzaprine HCl (Flexeril) 10 mg PO BID [facility] Last Admin: 02/13/18 16:43 Dose: 10 mg Diazepam (Valium) 2 mg PO BID PRN PRN Reason: vertigo Last Admin: 02/13/18 13:03 Dose: 2 mg Ketorolac Tromethamine (Toradol) 10 mg PO Q6 PRN PRN Reason: Headache Last Admin: 02/13/18 22:46 Dose: 10 mg - Labs Labs: 02/13/18 05:00 02/13/18 05:00 - Constitutional Appears: Well - Head Exam Head Exam: ATRAUMATIC, NORMAL INSPECTION, NORMOCEPHALIC - Eye Exam Eye Exam: EOMI, Normal appearance, PERRL Pupil Exam: NORMAL ACCOMODATION, PERRL - ENT Exam ENT Exam: Mucous Membranes Moist, Normal Exam - Neck Exam Neck Exam: Full ROM, Normal Inspection. absent: Lymphadenopathy - Respiratory Exam Respiratory Exam: Clear to Ausculation Bilateral, NORMAL BREATHING PATTERN - Cardiovascular Exam Cardiovascular Exam: REGULAR RHYTHM, +S1, +S2, Murmur - GI/Abdominal Exam GI & Abdominal Exam: Soft, Normal Bowel Sounds. absent: Tenderness - Extremities Exam Extremities Exam: Full ROM, Normal Capillary Refill, Normal Inspection. absent : Joint Swelling, Pedal Edema - Back Exam Back Exam: NORMAL INSPECTION - Neurological Exam Neurological Exam: Alert, Awake, CN II-XII Intact, Normal Gait, Oriented x3 - Psychiatric Exam Psychiatric exam: Normal Affect, Normal Mood - Skin Skin Exam: Dry, Intact, Normal Color, Warm Assessment and Plan (1) Syncope Status: Acute (2) Headache Status: Acute (3) HTN (hypertension) Status: Acute (4) Migraine Status: Acute
--- NOTE | 2018-02-14 12:25 | CT ---
PROCEDURE: CTA HEAD AND NECK WITH CONTRAST HISTORY: vertigo COMPARISON: None available. TECHNIQUE: Initial noncontrast head CT was performed. Subsequently, CT angiogram of the head and neck were performed after the intravenous administration of 80 mL of Omnipaque 350. Contiguous 1.5mm thick images were obtained in the axial plane of the neck. 2-D coronal and sagittal MPR images were obtained. Imaging postprocessing was performed with 3-D images also obtained. A delayed contrast head CT was also obtained. This CT exam was performed using one or more of the following dose reduction techniques: Automated exposure control, adjustment of the mA and/or kV according to patient size, and/or use of iterative reconstruction technique. Contrast dose: 85 mL Visipaque 320 Radiation dose: Total exam DLP = 447.47 mGy-cm. FINDINGS: HEAD: Right: The intracranial internal carotid artery, and anterior and middle cerebral arteries are widely patent. Left: The intracranial internal carotid artery, and anterior and middle cerebral arteries are widely patent. Posterior circulation: The visualized intracranial vertebral arteries, basilar artery and posterior cerebral arteries are widely patent. 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 There is no endoluminal filling defect to suggest thrombus. There is no intracranial saccular aneurysm. NECK: There is a three vessel aortic arch, common origins of innominate and left common carotid artery and aortic origin of the left vertebral artery with the common trunk and left subclavian artery. There is no stenosis at the origins of the great vessels at the level of the aortic arch. Right Carotid: On the right, the common carotid, internal carotid and external carotid arteries are widely patent. There is no hemodynamically significant stenosis in the internal carotid artery by NASCET criteria. Left Carotid: On the left, the common carotid, internal carotid and external carotid arteries are widely patent.There is no hemodynamically significant stenosis in the internal carotid arteries. There is no hemodynamically significant stenosis in the internal carotid artery by NASCET criteria. The vertebral arteries are widely patent. The left vertebral artery is hypoplastic, an anatomic variant. The visualized soft tissues of the neck are normal. The visualized brain and cervical spine are within normal limits. The lung apices are clear. IMPRESSION: 1. No evidence of endoluminal thrombus,occlusion or definite significant stenosis in the intracranial arteries. 2. No evidence of hemodynamically significant stenosis in the internal carotid arteries. 3. Patent bilateral vertebral arteries. The left vertebral artery is hypoplastic, an anatomic variant. 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 A preliminary report was provided by [email or web address].
[2018-02-14 12:30] VITALS: TEMP 98.3; O2SAT 98
--- NOTE | 2018-02-14 13:58 | CP.PCM.PN ---
Subjective - Date & Time of Evaluation Date of Evaluation: 02/14/18 Time of Evaluation: 07:05 - Subjective Subjective: No acute overnight events. Pt seen and examined at bedside this am. Found sleeping comfortably. Denies any headaches or vertigo at the moment. States that she has been having headaches and dizziness the night before that was relieved with Keterolac and Valium. Denies CP, SOB, Syncopy, numbness/tingling, weakness. Objective - Vital Signs/Intake and Output Vital Signs (last 24 hours): Temp Pulse Resp BP Pulse Ox 98.3 F 90 18 108/74 98 02/14/18 12:29 02/14/18 12:29 02/14/18 12:29 02/14/18 12:29 02/14/18 12:29 - Medications Medications: Current Medications Acetaminophen (Tylenol 325mg Tab) 650 mg PO Q6 PRN PRN Reason: Headache Last Admin: 02/11/18 17:14 Dose: 650 mg Cyanocobalamin (Vitamin B12 1000 Mcg/Ml Inj) 1,000 mcg IM DAILY [facility] Last Admin: 02/14/18 09:20 Dose: 1,000 mcg Cyclobenzaprine HCl (Flexeril) 10 mg PO BID [facility] Last Admin: 02/14/18 09:20 Dose: 10 mg Diazepam (Valium) 2 mg PO BID PRN PRN Reason: vertigo Last Admin: 02/13/18 13:03 Dose: 2 mg Ketorolac Tromethamine (Toradol) 10 mg PO Q6 PRN PRN Reason: Headache Last Admin: 02/14/18 09:21 Dose: 10 mg - Labs Labs: 02/13/18 05:00 02/13/18 05:00 - Constitutional Appears: Well, No Acute Distress - Head Exam Head Exam: ATRAUMATIC, NORMAL INSPECTION - Eye Exam Eye Exam: Normal appearance, PERRL - ENT Exam ENT Exam: Mucous Membranes Moist, Normal External Ear Exam - Neck Exam Neck Exam: Full ROM - Respiratory Exam Respiratory Exam: Clear to Ausculation Bilateral. absent: Rales, Wheezes - Cardiovascular Exam Cardiovascular Exam: REGULAR RHYTHM, +S1, +S2. absent: Murmur - GI/Abdominal Exam GI & Abdominal Exam: Soft, Normal Bowel Sounds. absent: Distended, Tenderness - Extremities Exam Extremities Exam: absent: Pedal Edema - Neurological Exam Neurological Exam: Alert, Oriented x3 - Psychiatric Exam Psychiatric exam: Normal Affect - Skin Skin Exam: Dry Assessment and Plan (1) Headache Status: Chronic (2) Syncope Status: Resolved (3) HTN (hypertension) Status: Chronic (4) Vertigo Status: Chronic - Assessment and Plan (Free Text) Assessment: 37 y/o female admitted for syncopy and dizziness. -Symptoms well controlled with Keterolac and PRN Valium -Head & Neck CTA WNL -EEG report pending -Orthostatics wnl -Awaiting further recommendations from Cardiology and neurology -C/W current management -Tele Monitoring Discontinued Discussed case with Dr. Caro Alaniz, PGY2
[2018-02-14 15:58] VITALS: BP 120/79; PULSE 76; RESP 16
== END 2018-02-14 17:18 | disposition home or self-care (01) | DRG 142 ==
LOC: H.ER 18:35 → OBSVTOIN 22:13 → H.ERHOLD 22:13 → H.TEL 02-11 00:04
PROVIDERS: ADMIT Internal Medicine; ATTEND Internal Medicine
DX: R55 Syncope and collapse (principal); G43.809 Other migraine, not intractable, without status migrainosus; E66.01 Morbid (severe) obesity due to excess calories; Z68.29 Body mass index [BMI] 29.0-29.9, adult; G47.30 Sleep apnea, unspecified; I10 Essential (primary) hypertension; R73.03 Prediabetes; K21.9 Gastro-esophageal reflux disease without esophagitis; D64.9 Anemia, unspecified; F17.210 Nicotine dependence, cigarettes, uncomplicated; Z98.84 Bariatric surgery status; Z88.0 Allergy status to penicillin; Z88.6 Allergy status to analgesic agent

== ENCOUNTER 2018-03-27 20:03 | Emergency (ER) | payer MEDICAID ==
[2018-03-27 20:03] VITALS: BMI 30.9
[2018-03-27] MEDS ORDERED: Sodium Chloride 0.9% 1,000 ML IV STA (20:46)
--- NOTE | 2018-03-27 20:56 | ED PDOC ---
HPI: Chest Pain Time Seen by Provider: 03/27/18 20:33 Chief Complaint (Nursing): Shortness Of Breath Chief Complaint (Provider): chest pain History Per: Patient History/Exam Limitations: no limitations Onset/Duration Of Symptoms: Hrs (7), Waxing/Waning Current Symptoms Are (Timing): Still Present Exacerbating Factors: Deep Breathing Additional Complaint(s): 37 y/o female presents for evaluation of midsternal chest pain x 7 hours. Patient states pain only present upon taking deep breaths, which is making her feel like she can not breathe. Patient also complaining of abscess to left buttock x 4 days; notes fever of 102F last night, last dose of Ibuprofen taken at that time Patient also reports dysuria x 1 week. Denies headache, dizziness, nausea/vomiting, palpitations, abdominal pain, changes in bowel movements, hematuria, vaginal bleeding/discharge, leg pain/swelling, recent travel. Past Medical History Reviewed: Historical Data, Nursing Documentation, Vital Signs Vital Signs: Last Vital Signs Temp 99.1 F 03/27/18 20:14 Pulse 102 H 03/27/18 20:14 Resp 20 03/27/18 20:14 BP 147/100 H 03/27/18 20:14 Pulse Ox 100 03/27/18 20:14 - Medical History PMH: Anemia, Depression, Diabetes (no meds since April 2015), HTN, Migraine, Sleep Apnea (Prior to gastric sleeve) Denies: HIV, Chronic Kidney Disease - Surgical History Surgical History: Tonsillectomy, (x 3 '11,'05,'03) Denies: Pacemaker - Family History Family History: States: Unknown Family Hx - Immunization History Hx Tetanus Toxoid Vaccination: No Hx Influenza Vaccination: No Hx Pneumococcal Vaccination: No - Home Medications Home Medications: Ambulatory Orders Medication Instructions Recorded Enalapril Maleate [Vasotec] 2.5 mg PO BID 12/03/17 diaZEpam [Valium] 2 mg PO BID PRN #10 tab 02/14/18 Cyclobenzaprine [Cyclobenzaprine 10 mg PO BID #60 tab 02/15/18 HCl] Naproxen [Naprosyn] 500 mg PO Q12 PRN #20 tablet 03/27/18 Sulfamethoxazole/Trimethoprim 1 tab PO BID #19 tab 03/27/18 [Bactrim DS 800 mg-160 mg] - Allergies Allergies/Adverse Reactions: Allergies Allergy/AdvReac Type Severity Reaction Status Date / Time aspirin Allergy RASH Verified 02/10/18 18:55 Penicillins Allergy URTICARIA Verified 02/10/18 18:55 seasonal Allergy SWELLING Uncoded 02/10/18 18:55 Review of Systems ROS Statement: Except As Marked, All Systems Reviewed And Found Negative Cardiovascular: Positive for: Chest Pain Respiratory: Positive for: Shortness of Breath Genitourinary Female: Positive for: Dysuria Skin: Positive for: Lesions (left buttock pain) Physical Exam - Reviewed Nursing Documentation Reviewed: Yes Vital Signs Reviewed: Yes - Physical Exam Appears: Positive for: Well, Non-toxic, No Acute Distress Head Exam: Positive for: ATRAUMATIC, NORMAL INSPECTION, NORMOCEPHALIC Skin: Positive for: Normal Color Eye Exam: Positive for: Normal appearance ENT: Positive for: Normal ENT Inspection Cardiovascular/Chest: Positive for: Regular Rate, Rhythm Respiratory: Positive for: Normal Breath Sounds Gastrointestinal/Abdominal: Positive for: Normal Exam, Bowel Sounds, Soft Back: Positive for: Normal Inspection, Other (left gluteal abscess with central draining lesion. Nonfluctuant. ). Negative for: L CVA Tenderness, R CVA Tenderness Extremity: Positive for: Normal ROM Neurologic/Psych: Positive for: Alert, Oriented (x3) - Laboratory Results Result Diagrams: 03/27/18 21:27 03/27/18 21:27 - ECG ECG: Positive for: Viewed By Me (reviewed by ED attending) ECG Rhythm: Positive for: Sinus Rhythm O2 Sat by Pulse Oximetry: 100 - Radiology X-Ray: Viewed By Ak X-Ray Interpretation: No Acute Disease - Progress ED Course And Treament: labs, ekg, chest xray, IV toradol Verbal consent given by patient for I&D procedure IV morphine dose given. Area cleaned with alcohol, anesthetized with 3mL lidocaine 1% Incision made over draining area with #11 blade with large purulent drainage. Area loculated with tweezers, packed with packing tape, bandaged Patient educated on findings, discharged with rx Bactrim DS (dose given in ED), Naproxen Advised to return in 48 hours for wound check/packing removal Advised warm compresses Return precautions given Disposition - Clinical Impression Clinical Impression: Abscess, gluteal, left, Atypical chest pain, UTI (urinary tract infection) - Patient ED Disposition Is Patient to be Admitted: No Counseled Patient/Family Regarding: Studies Performed, Diagnosis, Need For Followup, Rx Given - Disposition Disposition: Routine/Home Disposition Time: 23:25 Condition: IMPROVED Additional Instructions: Return to ED in 48 hours for wound check Take medication as directed Apply warm compresses to affected area Prescriptions: Naproxen [Naprosyn] 500 mg PO Q12 PRN #20 tablet PRN Reason: Pain, Moderate (4-7) Sulfamethoxazole/Trimethoprim [Bactrim DS 800 mg-160 mg] 1 tab PO BID #19 tab Instructions: Abscess Incision and Drainage, Chest Pain That Is Not Caused by the Heart (DC), Urinary Tract Infections in Adults Forms: [facility] (Lithuanian), [facility] ED School/Work Excuse
[2018-03-27 21:32] LABS: BASO % 0.5 % (0.0-2.0); EOS # 0.1 K/uL (0.0-0.7); EOS % 1.7 % (0.0-4.0); HEMOGLOBIN 11.7 g/dL (12.0-16.0); LYMPH # 1.1 K/uL (1.0-4.3); LYMPH % 17.8 % (20.0-40.0); MEAN CELL VOLUME 75.5 fl (81.0-99.0); MEAN CORPUSCULAR HEMOGLOBIN 24.2 pg (27.0-31.0); MEAN CORPUSCULAR HGB CONC 32.1 g/dL (33.0-37.0); MEAN PLATELET VOLUME 8.3 fl (7.2-11.7); MONO # 0.5 K/uL (0.0-0.8); MONO % 8.1 % (0.0-10.0); NEUT # 4.3 K/uL (1.8-7.0); NEUT % 71.9 % (50.0-75.0); NRBC % 0.1 % (0.0-0.0); RBC 4.81 Mil/uL (3.80-5.20); RED CELL DISTRIBUTION WIDTH 20.2 % (11.5-14.5)
[2018-03-27 21:33] LABS: VENOUS BLOOD GAS BASE EXCESS 2.8 mmol/L (0.0-2.0); VENOUS BLOOD GAS PCO2 47 mmHg (40-60); VENOUS BLOOD GAS PO2 33 mm/Hg (30-55); VENOUS BLOOD PH 7.39 (7.32-7.43)
[2018-03-27 21:42] LABS: ALBUMIN 3.7 g/dL (3.5-5.0); ALT/SGPT 17 U/L (9-52); AST/SGOT 22 U/L (14-36); BLOOD UREA NITROGEN 12 mg/dl (7-17); CALCIUM 9.2 mg/dL (8.4-10.2); GFR NON-AFRICAN AMERICAN > 60
[2018-03-27] MEDS ORDERED: Morphine 4 MG/ML VIAL IVP ONE (22:00)
[2018-03-27] MEDS ORDERED: Lidocaine 1% Inj (20ml) IJ ONE (22:03)
[2018-03-27] MEDS ORDERED: Morphine 4 MG/ML VIAL ONE (22:08)
[2018-03-27 22:19] VITALS: PULSE 91; RESP 16
[2018-03-27 23:05] LABS: SQUAMOUS EPITHIAL 2 /hpf (0-5); URINE BACTERIA RARE (<OCC); URINE BILIRUBIN NEGATIVE (NEGATIVE); URINE BLOOD SMALL (NEGATIVE); URINE CLARITY CLOUDY (Clear); URINE COLOR YELLOW (YELLOW); URINE GLUCOSE (UA) 150 mg/dL (Normal); URINE LEUKOCYTE ESTERASE MOD Leu/uL (Negative); URINE PROTEIN NEGATIVE (NEGATIVE); URINE UROBILINOGEN 0.2-1.0 mg/dL (0.2-1.0)
[2018-03-27] MEDS ORDERED: Tmp-Smz 800 mg-160 mg DS Tab PO STA (23:20)
[2018-03-27] MEDS ORDERED: Tmp-Smz 800 mg-160 mg DS Tab ONE (23:32)
[2018-03-27 23:46] VITALS: BP 127/78; TEMP 99.1; O2SAT 99
--- NOTE | 2018-03-28 08:40 | RAD ---
HISTORY: Chest pain COMPARISON: 12/31/2016. TECHNIQUE: Chest PA and lateral FINDINGS: LINES AND TUBES: None. LUNG AND PLEURA: The lungs are well inflated and clear. No pleural effusion or pneumothorax. HEART AND MEDIASTINUM: The heart is not enlarged. No aortic atherosclerotic calcification present. The hilar and mediastinal contours are within normal limits. SKELETAL STRUCTURES: The bony structures are within normal limits for the patient's age. VISUALIZED UPPER ABDOMEN: Normal. OTHER FINDINGS: None. IMPRESSION: No active pulmonary disease.
--- NOTE | 2018-03-28 16:13 | CARD ---
APPROVED REPORT Date of service: 03/27/2018 EKG Measurement Heart [id number] <Conclusion> Normal sinus rhythm Normal Electrocardiogram
== END 2018-03-28 00:04 | disposition home or self-care (01) ==
LOC: H.ER 20:03
DX: L02.31 Cutaneous abscess of buttock (principal); R07.9 Chest pain, unspecified; N39.0 Urinary tract infection, site not specified; E11.9 Type 2 diabetes mellitus without complications; Z86.59 Personal history of other mental and behavioral disorders; I10 Essential (primary) hypertension; Z88.0 Allergy status to penicillin
CPT/HCPCS: 10060; 71046; 80053; 81003; 81025; 82803; 84484; 85025; 85378; 87070; 87086; 87181; 93005; 96374; 96375; 99284; J1885; J2270; J7040

== ENCOUNTER 2018-03-29 16:34 | Emergency (ER) | payer MEDICAID ==
[2018-03-29 16:34] VITALS: BMI 30.9
[2018-03-29 17:09] VITALS: BP 116/73; PULSE 99; RESP 16; TEMP 98.1; O2SAT 98
--- NOTE | 2018-03-29 17:34 | ED PDOC ---
HPI: Wound Care - HPI Time Seen by Provider: 03/29/18 17:14 Chief Complaint (Nursing): Wound Check Chief Complaint (Provider): Wound Check History Per: Patient History Of Present Illness: Liil Quinteros is a 37 year old female with a past medical history of hypertension, diabetes, GERD, and anemia who is presenting to the ED for a wound evaluation and packing removal. Patient states that she had an abscess drained 2 days ago and was advised to have packing removed two days after drainage. She states that she is taking the prescribed antibiotics and notes an overall improvement though the abscess is still draining. Patient offers no other medical complaints at this time. PMD: Dr. Montano Exam Limitations: no limitations Onset/Duration Of Symptoms: Days Current Symptoms Are (Timing): Still Present Past Medical History Reviewed: Historical Data, Nursing Documentation, Vital Signs Vital Signs: Last Vital Signs Temp 98.1 F 03/29/18 17:07 Pulse 99 H 03/29/18 17:07 Resp 16 03/29/18 17:07 BP 116/73 03/29/18 17:07 Pulse Ox 98 03/29/18 17:07 - Medical History PMH: Anemia, Depression, Diabetes (no meds since April 2015), HTN, Migraine, Sleep Apnea (Prior to gastric sleeve) - Surgical History Surgical History: Tonsillectomy, (x 3 '11,'05,'03) - Family History Family History: States: Unknown Family Hx - Home Medications Home Medications: Ambulatory Orders Medication Instructions Recorded RX: Enalapril Maleate [Vasotec] 2.5 mg PO BID 12/03/17 RX: diaZEpam [Valium] 2 mg PO BID PRN #10 tab 02/14/18 Cyclobenzaprine [Cyclobenzaprine 10 mg PO BID #60 tab 02/15/18 HCl] RX: Naproxen [Naprosyn] 500 mg PO Q12 PRN #20 tablet 03/27/18 Sulfamethoxazole/Trimethoprim 1 tab PO BID #19 tab 03/27/18 [Bactrim DS 800 mg-160 mg] - Allergies Allergies/Adverse Reactions: Allergies Allergy/AdvReac Type Severity Reaction Status Date / Time aspirin Allergy RASH Verified 03/29/18 17:06 Penicillins Allergy URTICARIA Verified 03/29/18 17:06 seasonal Allergy SWELLING Uncoded 10/31/18 17:06 Review of Systems ROS Statement: Except As Marked, All Systems Reviewed And Found Negative Constitutional: Positive for: Other (wound check) Physical Exam - Reviewed Nursing Documentation Reviewed: Yes Vital Signs Reviewed: Yes - Physical Exam Comments: GENERAL APPEARANCE: Patient is awake, alert, oriented x 3, in no acute distress. Resting comfortably. Neck: Supple, FROM Skin: warm and dry. Interior aspect of left gluteus: (+) 1 cm incision with packing in place (+) mild surrounding erythema, (+) edema, (+) fluctuance (+) active drainage. Pulmonary: lungs clear to auscultation, no rhonchi, no wheezing, no rales. Cardiac: regular rate and rhythm - ECG O2 Sat by Pulse Oximetry: 98 (RA) Pulse Ox Interpretation: Normal Medical Decision Making Medical Decision Making: Time: 17:35 Impression: wound check, packing removal Packing removed without difficultly by Will MAY. Wound expressed of additional purulent material. Bacitracin dressing placed, and patient educated on wound care. Advised to complete antibiotic course and follow up with PMD within the week. Upon provider evaluation, patient is medically stable and requires no further treatment in the ED at this time. Patient will be discharged home. She agrees to discharge plan and all questions were answered regarding diagnosis and need for follow up. Scribe Attestation: Documented by Nicolle Rivera, acting as a scribe for Juany Solis PA-C. Provider Scribe Attestation: All medical record entries made by the Scribe were at my direction and personally dictated by me. I have reviewed the chart and agree that the record accurately reflects my personal performance of the history, physical exam, medical decision making, and the department course for this patient. I have also personally directed, reviewed, and agree with the discharge instructions and disposition. Disposition - Clinical Impression Clinical Impression: Wound check, abscess, Abscess packing removal - Patient ED Disposition Is Patient to be Admitted: No Counseled Patient/Family Regarding: Studies Performed, Diagnosis, Need For Followup, Rx Given - Disposition Referrals: your, doctor [Other] Disposition: Routine/Home Disposition Time: 17:35 Condition: STABLE Additional Instructions: FOLLOW UP WITH YOUR DOCTOR WITHIN THE WEEK FOR ADDITIONAL WOUND CHECK. TAKE MEDICATIONS PRESCRIBED FROM PRIOR ED VISIT. The emergency medical care you received today was directed at your acute symptoms. If you were prescribed any medication, please fill it and take as directed. It may take several days for your symptoms to resolve. Return to the Emergency Department if your symptoms worsen, do not improve, or if you have any other problems. Please contact your doctor in 2 days for re-evaluation and follow up / or call one of the physicians/clinics you have been referred to that are listed on the Patient Visit Information form that is included in your discharge packet. Bring any paperwork you were given at discharge with you along with any medications you are taking to your follow up visit. Our treatment cannot replace ongoing medical care by a primary care provider (PCP) outside of the emergency department. Instructions: Skin Abscess, Wound Care, Wound Incision and Drainage Forms: [employer] (British) Print Language: GAMBIAN - POA Present On Arrival: None
== END 2018-03-29 17:39 | disposition home or self-care (01) ==
LOC: H.ER 16:34
DX: Z48.00 Encounter for change or removal of nonsurgical wound dressing (principal)

== ENCOUNTER 2018-05-18 18:18 | Emergency (ER) | payer MEDICAID ==
[2018-05-18 18:18] VITALS: BMI 30.9
[2018-05-18 18:49] VITALS: RESP 16; TEMP 98.5
[2018-05-18] MEDS ORDERED: Sodium Chloride 0.9% 1,000 ML IV STA (20:40)
[2018-05-18] MEDS ORDERED: Morphine 4 MG/ML VIAL IV STA (20:46)
[2018-05-18] MEDS ORDERED: Iohexol 240 (50 ml) PO ONE (20:47)
--- NOTE | 2018-05-18 21:15 | ED PDOC ---
HPI: Abdomen Time Seen by Provider: 05/18/18 20:15 Chief Complaint (Nursing): Abdominal Pain Chief Complaint (Provider): Diffuse abdominal pain, worse epigastric History Per: Patient History/Exam Limitations: no limitations Onset/Duration Of Symptoms: Days Outside of [place] travel?: No Current Symptoms Are (Timing): Still Present Additional Complaint(s): 38 yo female with history of gastric bypass and HTN presents for evaluation of abdominal pain. PT states the pain is all over abdomen however began in the epigastric area and is now worse in that location. Pt denies N/V but states that she is ate breakfast but did not have an appetite. Pt states that she felt feverish at home but did not take her temperature. Pt took motrin for pain at 17 30. Pt reports normal BM today. Past Medical History Reviewed: Historical Data, Nursing Documentation, Vital Signs Vital Signs: Last Vital Signs Temp 98.5 F 05/18/18 18:47 Pulse 83 05/18/18 18:47 Resp 16 05/18/18 18:47 BP 150/90 05/18/18 18:47 Pulse Ox 100 05/18/18 18:47 - Medical History PMH: Anemia, Depression, Diabetes (no meds since April 2015), HTN, Migraine, Sleep Apnea (Prior to gastric sleeve) Denies: HIV, Chronic Kidney Disease - Surgical History Surgical History: Tonsillectomy, (x 3 '11,'05,'03) Denies: Pacemaker - Family History Family History: States: Unknown Family Hx - Immunization History Hx Tetanus Toxoid Vaccination: No Hx Influenza Vaccination: No Hx Pneumococcal Vaccination: No - Home Medications Home Medications: Ambulatory Orders Medication Instructions Recorded Enalapril Maleate [Vasotec] 2.5 mg PO BID 12/03/17 diaZEpam [Valium] 2 mg PO BID PRN #10 tab 02/14/18 Cyclobenzaprine [Cyclobenzaprine 10 mg PO BID #60 tab 02/15/18 HCl] Naproxen [Naprosyn] 500 mg PO Q12 PRN #20 tablet 03/27/18 Sulfamethoxazole/Trimethoprim 1 tab PO BID #19 tab 03/27/18 [Bactrim DS 800 mg-160 mg] Ciprofloxacin [Cipro] 500 mg PO BID #10 tab 05/19/18 - Allergies Allergies/Adverse Reactions: Allergies Allergy/AdvReac Type Severity Reaction Status Date / Time aspirin Allergy RASH Verified 03/29/18 17:06 Penicillins Allergy URTICARIA Verified 03/29/18 17:06 seasonal Allergy SWELLING Uncoded 03/29/18 17:06 Review of Systems ROS Statement: Except As Marked, All Systems Reviewed And Found Negative Constitutional: Negative for: Fever, Chills Gastrointestinal: Positive for: Abdominal Pain. Negative for: Nausea, Vomiting, Diarrhea, Constipation, Melena Physical Exam - Reviewed Nursing Documentation Reviewed: Yes Vital Signs Reviewed: Yes - Physical Exam Appears: Positive for: Well, Non-toxic, No Acute Distress Head Exam: Positive for: ATRAUMATIC, NORMAL INSPECTION, NORMOCEPHALIC Skin: Positive for: Normal Color, Warm, DRY Eye Exam: Positive for: Normal appearance ENT: Positive for: Normal ENT Inspection Neck: Positive for: Normal, Painless ROM Cardiovascular/Chest: Positive for: Regular Rate, Rhythm Respiratory: Positive for: Normal Breath Sounds. Negative for: Accessory Muscle Use, Respiratory Distress Gastrointestinal/Abdominal: Positive for: Normal Exam, Soft, Tenderness (Diffuse tenderness with more severe epigastric adbominal tenderness ) Back: Positive for: Normal Inspection Extremity: Positive for: Normal ROM Neurologic/Psych: Positive for: Alert, Oriented, Gait - Laboratory Results Result Diagrams: 05/18/18 21:20 05/18/18 21:20 - ECG O2 Sat by Pulse Oximetry: 100 Pulse Ox Interpretation: Normal Medical Decision Making Medical Decision Making: Ovarian cyst on CT. US ordered for evaluation of new cyst seen on CT. Disposition - Clinical Impression Clinical Impression: Abdominal pain, UTI (urinary tract infection) - Patient ED Disposition Is Patient to be Admitted: No Counseled Patient/Family Regarding: Diagnosis, Need For Followup, Rx Given - Disposition Disposition: Routine/Home Disposition Time: 04:54 Condition: GOOD Prescriptions: Ciprofloxacin [Cipro] 500 mg PO BID #10 tab Instructions: Urinary Tract Infections in Adults Forms: [employer] (Vietnamese)
[2018-05-18 21:30] LABS: BASO % 0.5 % (0.0-2.0); EOS # 0.1 K/uL (0.0-0.7); EOS % 1.9 % (0.0-4.0); HEMOGLOBIN 11.8 g/dL (12.0-16.0); LYMPH # 0.8 K/uL (1.0-4.3); LYMPH % 14.6 % (20.0-40.0); MEAN CELL VOLUME 83.2 fl (81.0-99.0); MEAN CORPUSCULAR HEMOGLOBIN 26.2 pg (27.0-31.0); MEAN CORPUSCULAR HGB CONC 31.5 g/dL (33.0-37.0); MEAN PLATELET VOLUME 8.3 fl (7.2-11.7); MONO # 0.3 K/uL (0.0-0.8); MONO % 6.4 % (0.0-10.0); NEUT # 4.2 K/uL (1.8-7.0); NEUT % 76.6 % (50.0-75.0); NRBC % 0.1 % (0.0-0.0); RBC 4.51 Mil/uL (3.80-5.20); RED CELL DISTRIBUTION WIDTH 19.1 % (11.5-14.5); WHITE BLOOD COUNT 5.4 K/uL (4.8-10.8)
[2018-05-18] MEDS ORDERED: Iohexol 240 (50 ml) ONE (21:42)
[2018-05-18] MEDS ORDERED: Morphine 4 MG/ML VIAL ONE (21:43)
[2018-05-18 21:45] LABS: ALB/GLOB RATIO 1.1 (1.0-2.1); ALBUMIN 4.1 g/dL (3.5-5.0); ALT/SGPT 15 U/L (9-52); AST/SGOT 19 U/L (14-36); BLOOD UREA NITROGEN 13 mg/dl (7-17); CALCIUM 9.1 mg/dL (8.4-10.2); GFR NON-AFRICAN AMERICAN > 60; LIPASE 81 U/L (23-300)
[2018-05-18 22:26] LABS: SQUAMOUS EPITHIAL 1 /hpf (0-5); URINE BACTERIA OCC (<OCC); URINE BILIRUBIN NEGATIVE (NEGATIVE); URINE BLOOD SMALL (NEGATIVE); URINE CLARITY CLOUDY (Clear); URINE COLOR YELLOW (YELLOW); URINE GLUCOSE (UA) NEG (NEGATIVE); URINE LEUKOCYTE ESTERASE SMALL Leu/uL (Negative); URINE PROTEIN NEGATIVE (NEGATIVE)
[2018-05-18] MEDS ORDERED: Sodium Chloride 0.9% 50 ML IV ONE (23:35)
[2018-05-18] MEDS ORDERED: Iohexol 300 100 ML IJ ONE (23:35)
[2018-05-19 06:57] VITALS: BP 145/82; PULSE 79; O2SAT 99
--- NOTE | 2018-05-19 10:37 | US ---
Date of service: 05/19/2018 HISTORY: right ovarian cyst COMPARISON: None available. TECHNIQUE: Transabdominal and transvaginal FINDINGS: UTERUS: Measures 7.9 x 3.3 x 5.1 cm. Retroverted. No uterine mass. ENDOMETRIUM: Measures 3 mm in single wall thickness. Trace endometrial fluid incidentally noted. Mm in diameter. Unremarkable. CERVIX: No cervical abnormality identified. RIGHT OVARY: Measures 4.1 x 2.7 x 3.0 cm. No solid mass. Normal flow. LEFT OVARY: Measures 5.0 x 4.0 x 3.6 cm. No solid mass. Normal flow. Simple cyst, 2.5 x 2.4 x 3.4 cm. Presumed physiologic. FREE FLUID: No significant free fluid noted. OTHER FINDINGS: None. IMPRESSION: Trace endometrial fluid incidentally noted. Retroverted uterus. 3.4 cm simple left ovarian cyst, presumed physiologic. This corresponds to a left adnexal cyst seen on CT examination of 05/18/2018.
--- NOTE | 2018-05-19 13:18 | CT ---
Date of service: 05/18/2018 PROCEDURE: CT Abdomen and Pelvis with contrast HISTORY: Gastric bypass. Epigastric pain. COMPARISON: None. TECHNIQUE: Contiguous helical/transaxial sections of the abdomen pelvis performed following oral and intravenous injection of approximately 90 cc Omnipaque 300 contrast material. Additional 2D sagittal and coronal reformats generated. Comparison made with prior CT scan of the abdomen and pelvis dated 11/2017. Radiation dose: Total exam DLP = 427.88 mGy-cm. This CT exam was performed using one or more of the following dose reduction techniques: Automated exposure control, adjustment of the mA and/or kV according to patient size, and/or use of iterative reconstruction technique. FINDINGS: LOWER THORAX: Unremarkable. LIVER: Liver is enlarged measuring over 20 cm in CC dimension. Mild diffuse fatty hepatic infiltration. There appears to be a tiny hyperdense focus left lobe liver near the diaphragmatic dome and another in the posterolateral inferior margin right lobe liver... Suspect minimal fatty infiltration. GALLBLADDER AND BILE DUCTS: Unremarkable. PANCREAS: Unremarkable. No gross lesion or ductal dilatation. SPLEEN: Spleen exhibits normal size and attenuation pattern without mass collection or calcification. ADRENALS: Unremarkable. No mass. KIDNEYS AND URETERS: Unremarkable. No hydronephrosis. No solid mass. VASCULATURE: Unremarkable. No aortic aneurysm. No aortic atherosclerotic calcification or mural plaque present. BOWEL: No evidence of acute mechanical postoperative changes of gastric sleeve. There are several loops of small bowel within the right mid abdomen which exhibits slight wall thickening. Rule out enteritis versus peristalsis. No evidence of acute mechanical bowel obstruction with oral contrast material seen extending into the colon. No definitive abnormal mural wall thickening. Swirled appearance of the left aspect of the mid abdominal mesentery with a few loops of localized distended small bowel-nonspecific APPENDIX: No evidence of acute appendicitis PERITONEUM: Unremarkable. No free fluid. No free air. LYMPH NODES: Unremarkable. No enlarged lymph nodes. BLADDER: Unremarkable.. The uterus appears bulky and lobulated; rule out uterine fibroids. REPRODUCTIVE: There is a large left parasagittal adnexal cyst which measures approximately 3.6 x 2.1 cm. The uterus appears mildly enlarged and lobulated BONES: No acute fracture. OTHER FINDINGS: None. IMPRESSION: Postoperative changes of gastric sleeve. there are well wall thickening changes of several loops of small bowel in the right mid abdomen possibly representing peristalsis versus enteritis. Mild hepatomegaly. There appear to be at least 2 small low-attenuation foci within the left and right lobes of the liver too small to characterize though essentially unchanged so far as can be determined.. Mild splenomegaly. Few scattered colonic diverticula without radiographic evidence of acute diverticulitis. Swirled appearance of the left aspect of the mid abdominal mesentery with a few loops of localized distended small bowel-nonspecific Large left adnexal cyst.
== END 2018-05-19 05:01 | disposition home or self-care (01) ==
LOC: H.ER 18:18
DX: N39.0 Urinary tract infection, site not specified (principal); R10.13 Epigastric pain; N83.201 Unspecified ovarian cyst, right side; N83.202 Unspecified ovarian cyst, left side; N85.4 Malposition of uterus; Z98.84 Bariatric surgery status
CPT/HCPCS: 74177; 76830; 80053; 81003; 81025; 83690; 85025; 87086; 87181; 96374; 96375; 99283; J2270; J2405; J7030; Q9966; Q9967